=== PATIENT | female | born 1935 | race Two or more races ===

== ENCOUNTER 2017-06-19 13:21 | Inpatient (IN) | payer MEDICARE, OTHER ==
[~2017-06-19] VITALS: Ht 154.9 cm; Wt 64.0 kg
--- NOTE | 2017-06-19 15:05 | NUR ---
PT RECEIVED FROM YODER DIRECT ADMIT. WITH HELP OF SENIOR INTERACTIVE PRODUCER, TERRI MACIAS, SPEAKING TO THE PATIENT IN [facility], OBTAINED MEDICAL HISTORY AND ORIENTED PT TO ROOM AND CALL LIGHT. VITAL SIGNS TAKEN AND RECORDED. PATIENT DENIES PAIN. BED IN A LOW POSITION, CALL LIGHT WITHIN PATIENT REACH. WILL MONITOR.
--- NOTE | 2017-06-19 15:10 | NUR ---
DR JHA CALLED AND INFORMED PT IS ON THE FLOOR. MED RECON NURSE CALLED TO SUBMIT PT MEDS IN COMPUTER.
[2017-06-19 16:00] VITALS: BP 132/69
[2017-06-19] MEDS ORDERED: MEMA10TA PO (16:35)
[2017-06-19] MEDS ORDERED: PANT40TA4 PO (16:35)
[2017-06-19] MEDS ORDERED: SIMV20TA6 PO (16:35)
[2017-06-19] MEDS ORDERED: HYDR-4076 PO (16:35)
[2017-06-19] MEDS ORDERED: FAMO20TA8 PO (16:35)
[2017-06-19] MEDS ORDERED: IV NS 0.9% 1,000 ML IV PRN (17:51)
[2017-06-19] MEDS ORDERED: Z GUARD REMEDY 2 OZ OINT TP PRN (18:00)
[2017-06-19] MEDS ORDERED: HYDROCODONE/APAP 5/325MG 1 EACH TABLET PO PRN (18:00)
[2017-06-19] MEDS ORDERED: MAGNESIUM HYDROXIDE 30 ML UDC PO PRN (18:00)
[2017-06-19] MEDS ORDERED: ONDANSETRON HCL/PF 4 MG/2 ML VIAL IV PRN (18:00)
[2017-06-19] MEDS ORDERED: MAG HYDROX/AL HYDROX/SIMETH 30 ML UDC PO PRN (18:00)
[2017-06-19] MEDS ORDERED: ACETAMINOPHEN 325 MG TABLET PO PRN (18:00)
--- NOTE | 2017-06-19 18:52 | NUR ---
NO SIGNIFICANT CHANGES IN PATIENT CONDITION THROUGHOUT THE SHIFT. NO SOB OR DISTRESS NOTED AT THIS TIME. PATIENT DENIES PAIN. HEART RATE ST 103. BED IN A LOW POSITION, CALL LIGHT WITHIN PATIENT REACH. WILL ENDORSE FOR VANESSA.
[2017-06-19 19:12] LABS: CALCIUM, SERUM 8.7 mg/dL (8.5-10.1); CARBON DIOXIDE 25 mmol/L (21-32); CHLORIDE 93 mmol/L (98-107); CREATININE 0.8 mg/dL (0.6-1.3); GLUCOSE 258 mg/dL (74-106); POTASSIUM 3.3 mmol/L (3.5-5.1); SODIUM SERUM 127 mmol/L (136-145); UREA NITROGEN, BLOOD 10 mg/dL (7-18)
--- NOTE | 2017-06-19 19:15 | NUR ---
EDGE TRIMMER MECHANIC OPENING NOTES RECEIVED PT SITTING UPRIGHT IN BED WITH FAMILY AT BEDSIDE. PT IS AWAKE, ALERT AND RESPONSIVE. RESPIRATIONS ARE EVEN AND UNLABORED, NOT IN ANY ACUTE DISTRESS NOTED. DENIES ANY PAIN, SOB, N/V AT THIS TIME. IV SITE INTACT, NO INFILTRATION NOTED. DRESSING KEPT CLEAN AND DRY. SAFETY MEASURES ARE IN PLACE. INSTRUCTED PT TO USE CALL LIGHT WHEN ASSISTANCE IS NEEDED, CALL LIGHT IS LEFT WITHIN REACH. WILL MONITOR PT THROUGHOUT SHIFT.
[2017-06-19] MEDS: ENOXAPARIN SODIUM 40 MG/0.4 ML DISP.SYRIN SQ SCH (19:57)
[2017-06-19 20:00] VITALS: BP 121/71
[2017-06-19] MEDS ORDERED: AZITHROMYCIN 500 MG in IV D5W 250 ML IV SCH (20:00)
[2017-06-19 20:14] VITALS: BP_SYST 121; BP_SYST 125; BP_DIAS 71
[2017-06-19] MEDS: ALBUTEROL FS 2.5 MG/3 ML VIAL.NEB NEB SCH (20:14)
[2017-06-20] VITALS (10 sets, daily range): BP systolic 118–139; BP diastolic 64–82
--- NOTE | 2017-06-20 01:40 | NUR ---
RN NOTES RECEIVED PT. FROM ANOTHER NURSE NURSE NAVEED, PT IS A'OX3, [place] SPEAKING DENIES PAIN, NO OSB, CALL LIGHT WITHIN REACH, SIDERAILSUPX2, CONTINUE TO MONITOR
--- NOTE | 2017-06-20 01:49 | NUR ---
MS RN NOTES PT IS ALERT AND RESPONSIVE. NOT IN ANY APPARENT DISTRESS AT THIS TIME. IV SITE INTACT, NO INFILTRATIO NOTED. DRESSING KEPT CLEAN AND DRY. SAFETY MEASURES ARE IN PLACE. PT ASSIGNED TO COLLEEN SULLIVAN AND COLLEEN GHOTRA. REPORT GIVEN FOR CONTINUITY OF CARE.
[2017-06-20 06:16] LABS: BASOPHILS % (AUTO) 0.2 % (0.0-2.0); HEMATOCRIT 30 % (33-45); HEMOGLOBIN 10.3 g/dL (11.5-14.8); LYMPHOCYTES # (AUTO) 1.2 /CMM (0.8-4.8); LYMPHOCYTES % (AUTO) 15.4 % (20.0-44.0); MEAN CORPUSCULAR HGB CONC 34 g/dl (31.0-36.0); MEAN CORPUSCULAR VOLUME 86 fL (82-100); MONOCYTES # (AUTO) 0.4 /CMM (0.1-1.30); MONOCYTES % (AUTO) 4.9 % (2.0-12.0); NEUTROPHILS # (AUTO) 6.3 /CMM (1.8-8.9); NEUTROPHILS % (AUTO) 79.5 % (43.0-81.0); PLATELET COUNT (AUTO) 354 /CMM (150-450); RDW COEFFICIENT OF VARIATION 13.4 (11.5-15.0); RED BLOOD CELL COUNT(AUTO) 3.52 MIL/uL (4.0-5.2); WHITE BLOOD COUNT (AUTO) 7.9 K/uL (4.3-11.0)
[2017-06-20 06:30] LABS: CALCIUM, SERUM 8.3 mg/dL (8.5-10.1); CARBON DIOXIDE 24 mmol/L (21-32); CHLORIDE 98 mmol/L (98-107); CREATININE 0.5 mg/dL (0.6-1.3); GLUCOSE 163 mg/dL (74-106); MAGNESIUM 1.9 mg/dL (1.8-2.4); PHOSPHORUS 3.1 mg/dL (2.5-4.9); POTASSIUM 3.7 mmol/L (3.5-5.1); SODIUM SERUM 133 mmol/L (136-145); UREA NITROGEN, BLOOD 12 mg/dL (7-18)
--- NOTE | 2017-06-20 07:26 | NUR ---
MS RN CLOSING NOTE Patient was seen lying in bed AAOx4, breathing on 3L O2 NC with no SOB, and no signs of acute distress. Patient does have cough and occasional wheezing - pt is due for nebulizer treatment with RT. NS at 75 ml/hr is running through right AC 20g. All prescribed orders and patient needs have been met. Bed is in low/locked position, two side rails up, call mclain within reach. Will endorse patient care to day shift nurse.
--- NOTE | 2017-06-20 07:30 | NUR ---
MS/RN OPENING NOTE PATIENT ALERT AND ORIENTED X4. DENIES SOB. PATIENT ON 3L/MIN O2 VIA NC. RESPIRATION REGULAR AND UNLABORED. DENIES PAIN. RAC G 20 PATENT AND IV FLUIDS INFUSING WITH NO S/S INFILTRATION. BED LOW AND LOCKED. SIDE RAILS UP X2. CALL LIGHT WITHIN REACH. WILL CONTINUE TO MONITOR.
[2017-06-20] MEDS: ALBUTEROL FS 2.5 MG/3 ML VIAL.NEB NEB SCH ×4 (07:48→19:30)
[2017-06-20] MEDS: methylPREDNISolone SOD SUCC 125 MG/2ML VIAL IV SCH ×3 (08:30→16:12)
[2017-06-20] MEDS: SIMVASTATIN 20 MG TABLET PO SCH (08:30)
[2017-06-20] MEDS: hydrALAZINE HCL 25 MG TABLET PO SCH ×3 (08:30→16:12)
[2017-06-20] MEDS: MEMANTINE HCL 5 MG TABLET PO SCH (08:30)
[2017-06-20] MEDS: PANTOPRAZOLE 40 MG TABLET.DR PO SCH (08:30)
[2017-06-20] MEDS: FAMOTIDINE (20 MG) 20 MG TABLET PO SCH (08:30)
[2017-06-20] MEDS: DOCUSATE SODIUM 100 MG CAPSULE PO SCH ×2 (08:30→16:12)
--- NOTE | 2017-06-20 09:14 | NUR ---
MS/RN NOTE PATIENT IS SEEN BY DR JHA WITH NEW ORDER TO DISCONTINUE NS 0.9 % IV HYDRATION. THE ORDER READ BACK, VERIFIED. NOTED AND CARRIED OUT. THE PATIENT IS MADE AWARE.
--- NOTE | 2017-06-20 15:10 | NUR ---
MS/RN NOTE RP STATED THAT SHE WENT TO REMOVED THE BREATHING TREATMENT DUE TO IT WAS FINISHED AND NOTED HR 120. ASSESSED THE PATIENT AND NOTED HR 122, BP 131/74, R 20, TEMP 98.0, PL 0/10
--- NOTE | 2017-06-20 15:15 | NUR ---
MS/RN NOTE PATIENT MANUALLY CHECKED THE PATIENT HEART RATE AND NOTED PULSE THAT IS FAST ABOUT 130s AND IRREGULAR.
--- NOTE | 2017-06-20 15:16 | NUR ---
MS/RN NOTE PLACED THE PATIENT ON TELE MONITOR AND NOTED SR WITH EPISODES OF SVT. IS MADE AWARE.
--- NOTE | 2017-06-20 15:20 | NUR ---
MS/RN NOTE PER DR JHA STAT ECG ORDERED.
--- NOTE | 2017-06-20 15:25 | NUR ---
TELE/RN NOTE DR JHA IS MADE AWARE OF ECG RESULT.
--- NOTE | 2017-06-20 15:40 | NUR ---
TELE/RN NOTE WITH NEW ORDER OF CARDIZEM IV PUSH. PATIENT IS BEING ARRANGED TO GO TO [facility].
[2017-06-20] MEDS ORDERED: DILTIAZEM HCL 25 MG IV IV PRN (16:00)
--- NOTE | 2017-06-20 16:00 | NUR ---
TELE/RN NOTE PATIENT IN [facility] AND REPORT GIVEN TO THE RECEIVING NURSE.
--- NOTE | 2017-06-20 16:06 | NUR ---
MS/RN NOTE DR JHA IS MADE AWARE OF PATIENT HAVING EPISODES OF SVT WITH HR FLUCTUATING FROM 150 TO 194. NEW ORDER FOR CARDIZEM 10 MG IV Q6HR PRN FOR HR>110 WAS OBTAINED. THE ORDER READ BACK, VERIFIED. NOTED AND CARRIED OUT.
--- NOTE | 2017-06-20 16:10 | NUR ---
RN NOTE RECEIVED REPORT FROM [facility] MS 3RD FLOOR. RECEIVED PATIENT ALERT AND ORIENTED X4, SHE IS ABLE TO MAKE THINGS KNOWN AND VERBALIZE NEEDS IN HER OWN [place] IN[place] TRI[place] LANGUAGE (NEPALESE). BREATHING EVEN AND UNLABORED CURRENTLY ON 3L O2 VIA NC WELL TOLERATED. VITAL SIGN B/P 139/69, HR 150, RR 20, T 97.4, O2 95%, 0/10 PAIN. NO DISTRESS NOTED. PATIENT IS NOTED WITH ELEVATED HR, ORDERS TO GIVE CARDIZEM IV PUSH, CALLED PHARMACY BECAUSE THE [facility]MN[facility] DID NOT HAVE IT IN STOCK. THE PHARMACIST STATED THEY DO NOT HAVE CARDIZEM AVAILABLE AND TO RECOMMENDED VERAPAMIL INSTEAD. PAGE DR JHA TO MAKE HIM AWARE AND WHAT DOSAGE FOR THE MEDICATIONS. AWAITING FOR CALL BACK
--- NOTE | 2017-06-20 16:15 | NUR ---
RN NOTE DR JHA CALLED BACK SPOKE TO SOON CHARGE NURSE WITH NEW ORDERS FOR PATIENT TO START ON AMIODARONE DRIP PER PHARMACY DOSAGE.
[2017-06-20] MEDS ORDERED: AMIODARONE 150 MG in IV D5W 100 ML IV ONE (17:00)
[2017-06-20] MEDS ORDERED: AMIODARONE 900 MG in IV D5W 482 ML IV PRN (17:00)
--- NOTE | 2017-06-20 18:00 | NUR ---
RN NOTE PATIENT REMAINS STABLE ON AMIODARONE DRIP 1MG/MIN=33.3ML/HR. ON WIND TURBINE TECHNICIAN OF A-FIB HR OF 125-130, WILL CONTINUE TO MONITOR
--- NOTE | 2017-06-20 19:24 | NUR ---
TD RN NOTES RECEIVED PT ON BED. A/OX3. FAMILY ON BEDSIDE. ON NC 3LPM SATURATING WELL. ON TELE MONITOR MONITOR AFIB 129.ON AMIODARONE DRIP, 1MG/MIN 33.3ML/HR RUNNING WELL. IV ACCESS PATENT AND INTACT ON RIGHT WRIST AND RAC 20G. BED ALARM ON. HEAD OF BED ELEVATED. SIDE RAILS UP. CALL LIGHT WITHIN REACH. WILL CONTINUE TO MONITOR PT CLOSELY.
[2017-06-20] MEDS: ENOXAPARIN SODIUM 40 MG/0.4 ML DISP.SYRIN SQ SCH (20:22)
[2017-06-20] MEDS: AZITHROMYCIN 250 MG TABLET PO SCH (20:22)
[2017-06-20] MEDS: ONDANSETRON HCL/PF 4 MG/2 ML VIAL IVP PRN (20:33)
--- NOTE | 2017-06-20 23:30 | NUR ---
TD RN NOTES AMIODARONE DRIP TITRATRED TO .5MG/MIN. WILL CONTINUE TO MONITOR PT.
[2017-06-21] VITALS: BP 130/57
--- NOTE | 2017-06-21 03:23 | NUR ---
TD RN NOTES PT STILL ON AFIB 80S. WILL CONTINUE TO MONITOR
[2017-06-21 04:00] VITALS: BP 146/67
--- NOTE | 2017-06-21 06:48 | NUR ---
TD RN NOTES NO ACUTE CHANGES NOTED DURING THE SHIFT. PT STILL ON OCCASIONAL AFIB. AMIODARONE ON .5MG/ML. DUE MEDS GIVEN. HEAD OF BED ELEVATED. SIDE RAILS UP. CALL LIGHT IS PLACED WITHIN REACH. WILL ENDORSE TO THE AM NURSE FOR VANESSA.
--- NOTE | 2017-06-21 07:30 | NUR ---
RN NOTE RECEIVED PATIENT IN BED AWAKE, ALERT AND ORIENTED X3, SHE IS ABLE TO MAKE THINGS KNOWN IN HER [place] LANGUAGE. BREATHING EVEN UNLABORED WITH NO DISTRESS NOTED, CURRENTLY ON O2 VIA NC 3L SATURATING WELL. ON ACADEMIC ADVISER A-FIB 97. PATIENT CONTINUES ON AMIODARONE DRIP, 0.5MG/MIN 16.6ML/HR RUNNING WELL. IV ACCESS PATENT AND INTACT ON RIGHT WRIST. BED ALARM ON, BED LOCKED AND LOW POSITION. HEAD OF BED ELEVATED FOR COMFORT. PLACED CALL LIGHT WITHIN REACH. WILL CONTINUE TO MONITOR CLOSELY.
[2017-06-21] MEDS: PANTOPRAZOLE 40 MG TABLET.DR PO SCH (07:41)
[2017-06-21 08:00] VITALS: BP 143/76
[2017-06-21] MEDS: FAMOTIDINE (20 MG) 20 MG TABLET PO SCH (08:31)
[2017-06-21] MEDS: hydrALAZINE HCL 25 MG TABLET PO SCH ×3 (08:31→16:54)
[2017-06-21] MEDS: SIMVASTATIN 20 MG TABLET PO SCH (08:31)
[2017-06-21] MEDS: methylPREDNISolone SOD SUCC 125 MG/2ML VIAL IV SCH ×3 (08:32→16:54)
[2017-06-21] MEDS: DOCUSATE SODIUM 100 MG CAPSULE PO SCH ×2 (08:32→16:54)
[2017-06-21] MEDS: MEMANTINE HCL 5 MG TABLET PO SCH (08:32)
[2017-06-21] MEDS: ALBUTEROL FS 2.5 MG/3 ML VIAL.NEB NEB SCH (08:34)
[2017-06-21] MEDS: LEVALBUTEROL HCL NEB 1.25 MG/0.5 ML VIAL.NEB IH SCH ×3 (11:10→23:54)
[2017-06-21 11:26] LABS: TROPONIN I 0.311 ng/mL (0.00-0.056)
[2017-06-21 11:27] LABS: MAGNESIUM 2.1 mg/dL (1.8-2.4); PHOSPHORUS 2.5 mg/dL (2.5-4.9)
[2017-06-21 11:33] LABS: THYROID STIMULATING HORMONE 0.076 uIU/mL (0.358-3.74)
[2017-06-21 12:00] VITALS: BP 119/65
[2017-06-21 16:00] VITALS: BP 123/58
[2017-06-21] MEDS: AMIODARONE HCL 200 MG TABLET PO SCH (17:08)
--- NOTE | 2017-06-21 17:09 | NUR ---
RN NOTE AMIODARONE DRIP COMPLETED AND INFUSED. PATIENT WILL START ON AMIODARONE PO PER DR SHANE.
--- NOTE | 2017-06-21 19:11 | NUR ---
RN NOTE PATIENT REMAINED STABLE THROUGHOUT SHIFT. NO DISTRESS OR ACUTE CHANGES NOTED. WILL ENDORSE TO NEXT SHIFT TO CONTINUE CONTINUITY OF CARE.
[2017-06-21 20:00] VITALS: BP 111/59
[2017-06-21] MEDS: AZITHROMYCIN 250 MG TABLET PO SCH (21:43)
[2017-06-21] MEDS: ENOXAPARIN SODIUM 40 MG/0.4 ML DISP.SYRIN SQ SCH (21:48)
--- NOTE | 2017-06-21 22:00 | NUR ---
2159 PT PICKED UP, REPORT GIVEN TO [facility].
--- NOTE | 2017-06-21 22:47 | NUR ---
RN NOTE RN [facility] INITIAL NOTE RECEIVED PATIENT IN BED AWAKE, ALERT AND ORIENTED X3, SHE IS ABLE TO MAKE THINGS KNOWN IN HER [place] LANGUAGE. BREATHING EVEN UNLABORED WITH NO DISTRESS NOTED, CURRENTLY ON O2 VIA NC 3L SATURATING WELL. ON MOVIE MACHINE OPERATOR SR 80'S. IV ACCESS PATENT AND INTACT ON RIGHT WRIST. BED ALARM ON, BED LOCKED AND LOW POSITION. HEAD OF BED ELEVATED FOR COMFORT. PLACED CALL LIGHT WITHIN REACH. WILL CONTINUE TO MONITOR CLOSELY.
[2017-06-22] VITALS: BP 121/62
[2017-06-22 04:00] VITALS: BP 124/66
--- NOTE | 2017-06-22 06:09 | NUR ---
RN NOTE RN [facility] CLOSING NOTE ENDORSED PATIENT IN BED AWAKE, ALERT AND ORIENTED X3, SHE IS ABLE TO NEEDS KNOWN SAMI SPEAKING. BREATHING EVEN UNLABORED WITH NO DISTRESS NOTED, CURRENTLY ON O2 VIA NC 3L SATURATING WELL. ON SPLINE ROLLING MACHINE JOB SETTER SR 93'S. IV ACCESS PATENT AND INTACT ON RIGHT WRIST. BED ALARM ON, BED LOCKED AND LOW POSITION. HEAD OF BED ELEVATED FOR COMFORT. PLACED CALL LIGHT WITHIN REACH. WILL CONTINUE TO MONITOR CLOSELY.
[2017-06-22 06:29] LABS: BASOPHILS % (AUTO) 0.2 % (0.0-2.0); HEMATOCRIT 30 % (33-45); LYMPHOCYTES # (AUTO) 2.7 /CMM (0.8-4.8); MEAN CORPUSCULAR HGB CONC 34 g/dl (31.0-36.0); MEAN CORPUSCULAR VOLUME 87 fL (82-100); MONOCYTES # (AUTO) 1.1 /CMM (0.1-1.30); MONOCYTES % (AUTO) 6.9 % (2.0-12.0); NEUTROPHILS # (AUTO) 11.4 /CMM (1.8-8.9); NEUTROPHILS % (AUTO) 74.9 % (43.0-81.0); PLATELET COUNT (AUTO) 373 /CMM (150-450); RDW COEFFICIENT OF VARIATION 13.7 (11.5-15.0); RED BLOOD CELL COUNT(AUTO) 3.45 MIL/uL (4.0-5.2); WHITE BLOOD COUNT (AUTO) 15.2 K/uL (4.3-11.0)
[2017-06-22 07:04] LABS: TROPONIN I 0.211 ng/mL (0.00-0.056)
[2017-06-22 07:08] LABS: ALANINE AMINOTRANSFERASE 25 U/L (12-78); ALBUMIN 2.5 g/dL (3.4-5.0); ALKALINE PHOSPHATASE 29 U/L (46-116); ASPARTATE AMINOTRANSFERASE 14 U/L (15-37); BILIRUBIN,TOTAL 0.2 mg/dL (0.2-1.0); CALCIUM, SERUM 8.4 mg/dL (8.5-10.1); CARBON DIOXIDE 29 mmol/L (21-32); CHLORIDE 101 mmol/L (98-107); CREATININE 0.8 mg/dL (0.6-1.3); GLUCOSE 118 mg/dL (74-106); MAGNESIUM 2.2 mg/dL (1.8-2.4); PHOSPHORUS 2.1 mg/dL (2.5-4.9); POTASSIUM 3.7 mmol/L (3.5-5.1); SODIUM SERUM 134 mmol/L (136-145); TOTAL PROTEIN, SERUM 6.1 g/dL (6.4-8.2); UREA NITROGEN, BLOOD 23 mg/dL (7-18)
--- NOTE | 2017-06-22 07:30 | NUR ---
[facility] RN NOTE LESLY IN BED RESTING COMFORTABLY ON TELE MONITOR SR HR 85 AT THIS TIME , NO SOB NOTED ALERT ORIENTED X3 SR ,ON TELE MONITOR AT THIS TIME . BED IN LOWEST AND LOCKED POSITION C ALL LIGHT WITHIN REACH RT ARM HL WITH REDNESS NOTED, RT AC HL TENDER TO TOUCH , WILL CONT TO MONITOR CLOSELY ON 3L NC
[2017-06-22] MEDS: LEVALBUTEROL HCL NEB 1.25 MG/0.5 ML VIAL.NEB IH SCH ×3 (07:36→23:30)
[2017-06-22 08:00] VITALS: BP 152/78
[2017-06-22] MEDS: methylPREDNISolone SOD SUCC 125 MG/2ML VIAL IV SCH ×2 (08:04→20:48)
[2017-06-22] MEDS: FAMOTIDINE (20 MG) 20 MG TABLET PO SCH (08:04)
[2017-06-22] MEDS: hydrALAZINE HCL 25 MG TABLET PO SCH ×3 (08:04→16:16)
[2017-06-22] MEDS: DOCUSATE SODIUM 100 MG CAPSULE PO SCH ×2 (08:04→16:15)
[2017-06-22] MEDS: SIMVASTATIN 20 MG TABLET PO SCH (08:04)
[2017-06-22] MEDS: PANTOPRAZOLE 40 MG TABLET.DR PO SCH (08:05)
[2017-06-22] MEDS: AMIODARONE HCL 200 MG TABLET PO SCH (08:05)
[2017-06-22] MEDS: MEMANTINE HCL 5 MG TABLET PO SCH (08:05)
[2017-06-22] MEDS ORDERED: K PHOS NEUTRAL 250 MG TABLET PO ONE (11:30)
--- NOTE | 2017-06-22 11:54 | NUR ---
[facility] RN NOTE PT AT BESIDE ABLE TO AMBULATE WITH WALKER WELL. WILL CONT TO MONITOR CLOSELY
[2017-06-22 12:00] VITALS: BP_SYST 110; BP_SYST 152; BP_SYST 99; BP_DIAS 51; BP_DIAS 70; BP_DIAS 72
--- NOTE | 2017-06-22 13:29 | NUR ---
[facility] RN NOTE PATIENT C\O RECTUM PAIN ,UNABLE TO MAKE BM, MOM GIVEN AND TYLENOL FOR RECTAL PAIN GIVEN, WILL F\U
--- NOTE | 2017-06-22 14:48 | NUR ---
[facility] RN NOTE ON BREATHING TX BY RT ,FAMILY AT BEDSIDE
[2017-06-22] MEDS: ONDANSETRON HCL/PF 4 MG/2 ML VIAL IVP PRN (15:06)
--- NOTE | 2017-06-22 15:28 | NUR ---
[facility] RN NOTE C\O NAUSEA ZOFRAN 4 MG IVP GIVEN ORDERED ,WILL CONT TO MONITOR
[2017-06-22 16:00] VITALS: BP 129/71
--- NOTE | 2017-06-22 18:44 | NUR ---
MS RN NOTE FAMILY AT BEDSIDE, ALL NEEDS ATTENDED, NOT IN ACUTE DISTRESS, HAD DINNER ,ABLE TO FEED SELF CALL LGHT WITHIN REACH
--- NOTE | 2017-06-22 19:30 | NUR ---
MS RN OPENING NOTES RECEIVED PT RESTING IN BED COMFORTABLY. NO SOB NOTED. ALERT ORIENTED X 3. UPPER SORBIAN SPEAKING ONLY. NO C/O PAIN NOTED. NO OTHER ACUTE CHANGES NOTED @ THIS TIME. ON 3L O2 VIA NC. FAMILY @ BEDSIDE. BED IN LOWEST AND LOCKED POSITION. CALL LIGHT WITHIN REACH. IV ACCESS TO LEFT HAND, INTACT PATENT, HL. WILL CONT TO MONITOR CLOSELY FOR ANY VANESSA.
--- NOTE | 2017-06-22 19:35 | NUR ---
ADDENDUM PT HAS IV ACCESS TO RIGHT HAND # 24, NOT LEFT HAND, INTACT PATENT.
[2017-06-22 20:00] VITALS: BP 124/67
[2017-06-22] MEDS: AZITHROMYCIN 250 MG TABLET PO SCH (20:46)
[2017-06-22] MEDS: ENOXAPARIN SODIUM 40 MG/0.4 ML DISP.SYRIN SQ SCH (20:47)
[2017-06-23] VITALS: BP 143/64
--- NOTE | 2017-06-23 01:51 | NUR ---
MS RN NOTE PT SLEEPING COMFORTABLY @ THIS TIME. NO VANESSA NOTED. MONITORING CLOSELY.
[2017-06-23 04:00] VITALS: BP 135/75
--- NOTE | 2017-06-23 06:53 | NUR ---
MS RN CLOSING NOTES PT SLEPT WELL @ NIGHT. NO SOB NOTED. ALERT ORIENTED X 3. CITIZEN OF [place] SPEAKING ONLY. NO C/O PAIN NOTED. NO OTHER ACUTE CHANGES NOTED @ THIS TIME. ON 2L O2 VIA NC. ASSISTED WITH ADL CARE. ALL NEEDS ATTENDED TO & MET. BED IN LOWEST AND LOCKED POSITION. CALL LIGHT WITHIN REACH. IV ACCESS TO RIGHT HAND, INTACT PATENT, HL. WILL ENDORSE TO AM RN TO MONITOR FOR ANY VANESSA.
[2017-06-23] MEDS: LEVALBUTEROL HCL NEB 1.25 MG/0.5 ML VIAL.NEB IH SCH (07:47)
[2017-06-23 08:00] VITALS: BP 124/65
[2017-06-23] MEDS: DOCUSATE SODIUM 100 MG CAPSULE PO SCH (09:00)
[2017-06-23] MEDS ORDERED: METH5TAB6 PO (10:24)
[2017-06-23] MEDS ORDERED: PRED20TA PO (10:24)
[2017-06-23] MEDS ORDERED: ALBU18HF2 INH (10:24)
[2017-06-23] MEDS: MEMANTINE HCL 5 MG TABLET PO SCH (11:07)
[2017-06-23] MEDS: PANTOPRAZOLE 40 MG TABLET.DR PO SCH (11:07)
[2017-06-23] MEDS: FAMOTIDINE (20 MG) 20 MG TABLET PO SCH (11:07)
[2017-06-23 11:08] VITALS: BP 124/65
[2017-06-23] MEDS: hydrALAZINE HCL 25 MG TABLET PO SCH (11:08)
[2017-06-23] MEDS: SIMVASTATIN 20 MG TABLET PO SCH (11:09)
[2017-06-23] MEDS: methylPREDNISolone SOD SUCC 125 MG/2ML VIAL IV SCH (11:26)
== END 2017-06-23 12:40 | disposition home or self-care (01) | DRG 189 ==
LOC: TELE 14:36 → MED 06-20 00:59 → TELE-TD 06-20 15:50 → MEDSG1 06-22 11:40
PROVIDERS: ADMIT Internal Medicine; ATTEND Internal Medicine
DX: J96.01 Acute respiratory failure with hypoxia (principal); I21.A1 Myocardial infarction type 2; G93.40 Encephalopathy, unspecified; I48.91 Unspecified atrial fibrillation; J45.901 Unspecified asthma with (acute) exacerbation; I09.1 Rheumatic diseases of endocardium, valve unspecified; E86.0 Dehydration; D64.9 Anemia, unspecified; E05.00 Thyrotoxicosis with diffuse goiter without thyrotoxic crisis or storm; E78.5 Hyperlipidemia, unspecified; F03.90 Unspecified dementia, unspecified severity, without behavioral disturbance, psychotic disturbance, mood disturbance, and anxiety; I10 Essential (primary) hypertension; K21.9 Gastro-esophageal reflux disease without esophagitis; R11.0 Nausea; R73.9 Hyperglycemia, unspecified
CPT/HCPCS: 36415; 71045-TC; 80048-TC; 80053-TC; 80061-TC; 82306; 82728-TC; 83540-TC; 83735-TC; 84100-TC; 84439-TC; 84443-TC; 84484-TC; 85025-TC; 87081-TC; 93307-TC; 94799-TC; A6402; J0282; J0456; J1650; J2405; J2930; J3490; J7030; J7060; Z7610

== ENCOUNTER 2017-06-25 12:48 | Outpatient (CLI) | payer MEDICARE, OTHER ==
[~2017-06-25 12:48] MED LIST: ALBU18HF2 INH; FAMO20TA8 PO; HYDR-4076 PO; MEMA10TA PO; METH5TAB6 PO; PANT40TA4 PO; PRED20TA PO; SIMV20TA6 PO
[2017-06-25 12:54] VITALS: BP 115/79
== END 2017-06-25 23:59 | disposition home or self-care (01) ==
LOC: MSC 12:48
PROVIDERS: ATTEND Internal Medicine
DX: Z09 Encounter for follow-up examination after completed treatment for conditions other than malignant neoplasm (principal); J45.909 Unspecified asthma, uncomplicated; I10 Essential (primary) hypertension; E05.90 Thyrotoxicosis, unspecified without thyrotoxic crisis or storm; F03.90 Unspecified dementia, unspecified severity, without behavioral disturbance, psychotic disturbance, mood disturbance, and anxiety; E78.5 Hyperlipidemia, unspecified

== ENCOUNTER 2017-07-17 19:48 | Inpatient (IN) | payer MEDICARE, OTHER ==
[~2017-07-17] VITALS: Ht 152.4 cm; Wt 58.5 kg
--- NOTE | 2017-07-17 19:55 | NUR ---
TO BED 8 BIB PARAMEDICS C/O ABDOMINL PAIN WITH N/V X2 DAYS. PT AAOX4 NO ACUTE DISTRESS NOTED, RESP EVEN AN DUNLABORED. PLACE PT ON CARDIAC MONITORING, CONTINUOUS POX. ER MD AT BEDSIDE TO EVAL PT WITH ORDERES RECEIVED. WILL CARRY OUT ORDERS.
--- NOTE | 2017-07-17 20:00 | NUR ---
STARTED SL 18G TO RFA.
[2017-07-17] MEDS ORDERED: ONDANSETRON HCL/PF 4 MG/2 ML VIAL ONE (20:21)
[2017-07-17] MEDS ORDERED: HYDROMORPHONE INJ 0.5 MG/0.5 ML SYRINGE ONE (20:21)
--- NOTE | 2017-07-17 20:23 | NUR ---
PT FAMILY MEMBERS AT BEDSIDE.
[2017-07-17 20:25] LABS: PLATELET COUNT (AUTO) 449 /CMM (150-450)
[2017-07-17 20:30] LABS: APPEARANCE,URINE Clear (CLEAR); BILIRUBIN,URINE Negative (NEGATIVE); BLOOD, URINE Small Ery/uL (NEGATIVE); COLOR,URINE Yellow (YELLOW); KETONES,URINE Negative (NEGATIVE); LEUKOCYTE ESTERASE ,URINE Negative (NEGATIVE); NITRITE, URINE Negative (NEGATIVE); PROTEIN,URINE Negative (NEGATIVE); UGLUCOSE Negative (NEGATIVE); UROBILINOGEN,URINE 0.2 EU/dL (0.2)
[2017-07-17] MEDS ORDERED: HYDROMORPHONE INJ 2 MG/ML DISP.SYRIN IV ONE (20:30)
[2017-07-17] MEDS ORDERED: ONDANSETRON HCL/PF 4 MG/2 ML VIAL IVP ONE (20:30)
[2017-07-17] MEDS ORDERED: IV NS 0.9% 1,000 ML BAG IV ONE (20:30)
--- NOTE | 2017-07-17 20:30 | NUR ---
PT MEDICATED BY RN PER ER MD ORDER.
[2017-07-17 20:32] LABS: HEMATOCRIT 35 % (33-45); HEMOGLOBIN 12.1 g/dL (11.5-14.8); MEAN CORPUSCULAR HGB CONC 35 g/dl (31.0-36.0); MEAN CORPUSCULAR VOLUME 85 fL (82-100); RDW COEFFICIENT OF VARIATION 13.8 (11.5-15.0); RED BLOOD CELL COUNT(AUTO) 4.09 MIL/uL (4.0-5.2); WHITE BLOOD COUNT (AUTO) 8.1 K/uL (4.3-11.0)
[2017-07-17 20:35] LABS: CALCIUM, SERUM 9.1 mg/dL (8.5-10.1); CARBON DIOXIDE 24 mmol/L (21-32); CHLORIDE 87 mmol/L (98-107); CREATININE 0.6 mg/dL (0.6-1.3); GLUCOSE 114 mg/dL (74-106); POTASSIUM 3.2 mmol/L (3.5-5.1); SODIUM SERUM 121 mmol/L (136-145); UREA NITROGEN, BLOOD 8 mg/dL (7-18)
[2017-07-17 20:38] LABS: INR 0.94 (0.85-1.15)
[2017-07-17 20:43] LABS: TROPONIN I < 0.017 ng/mL (0.00-0.056)
[2017-07-17 20:46] LABS: ALANINE AMINOTRANSFERASE 16 U/L (12-78); ALBUMIN 3.5 g/dL (3.4-5.0); ALKALINE PHOSPHATASE 30 U/L (46-116); ASPARTATE AMINOTRANSFERASE 14 U/L (15-37); BILIRUBIN,DIRECT 0.1 mg/dL (0.0-0.2); BILIRUBIN,TOTAL 0.6 mg/dL (0.2-1.0); LIPASE 121 U/L (73-393); TOTAL PROTEIN, SERUM 7.3 g/dL (6.4-8.2)
[2017-07-17 21:05] LABS: BACTERIA,URINE Few /HPF (None Seen); MUCUS,URINE Rare /LPF (None Seen); SQUAMOUS EPITHELIAL CELL,UR Few /HPF (None Seen); URINE AMORPHOUS URATE Few /HPF (None Seen); WBC,URINE 2-4/HPH /HPF (0-3)
[2017-07-17 21:10] LABS: LYMPHOCYTES % (MANUAL) 34 % (16-48); MONOCYTES % (MANUAL) 8 % (0-11.0); NEUTROPHILS % (MANUAL) 58 (42-76)
[2017-07-17] MEDS ORDERED: FAMOTIDINE/PF INJ 20 MG/2 ML VIAL IV ONE ×2 (22:30→22:44)
--- NOTE | 2017-07-17 22:49 | NUR ---
TELE 327-2 FOR ABDOMINAL PAIN, ERIK NEVAREZ ADMITTING
--- NOTE | 2017-07-17 22:56 | NUR ---
REPORT CALLED TO [facility] UNDERWRITERCOLLEEN ROSADO. WILL TRANSPORT PT VIA ACLS PROTOCOL.
[2017-07-18] VITALS: BP 135/76
--- NOTE | 2017-07-18 00:10 | NUR ---
TELE/RN OPENING NOTES PT RECEIVED A/OX4. PALESTINIAN SPEAKING. ON 2L O2 VIA NC, BREATHING EVEN AND UNLABORED. DENIES SOB, NOTES SOME RUQ AND LUQ PAIN BUT TOLERABLE AT THIS TIME. PLACED ON BUYING INTERN, RHYTHM SHOWS SR WITH PVC'S AND PAC'S. IV TO RFA PATENT AND INTACT. ORIENTED PT TO ROOM AND CALL LIGHT. BED IN LOW/LOCKED POSITION WITH CALL LIGHT IN REACH. SIDE RAILS UPX2 WITH BED ALARM ON FOR SAFETY.
[2017-07-18 00:30] VITALS: BP 135/76
[2017-07-18] MEDS ORDERED: FAMOTIDINE (20 MG) 20 MG TABLET PO SCH (03:00)
[2017-07-18] MEDS ORDERED: ACETAMINOPHEN 325 MG TABLET PO PRN (03:00)
[2017-07-18] MEDS: IV NS 0.9% 1,000 ML IV PRN ×2 (03:54→19:55)
[2017-07-18 04:00] VITALS: BP 143/68
[2017-07-18] MEDS ORDERED: POTASSIUM CHLORIDE 20 MEQ TAB.PRT.SR PO ONE (04:00)
[2017-07-18] MEDS: hydrALAZINE HCL 25 MG TABLET PO SCH ×4 (05:11→23:52)
[2017-07-18 06:30] LABS: BASOPHILS # (AUTO) 0.1 /CMM (0.0-0.2); BASOPHILS % (AUTO) 0.7 % (0.0-2.0); EOSINOPHILS % (AUTO) 3.5 % (0.0-6.0); HEMATOCRIT 33 % (33-45); HEMOGLOBIN 11.2 g/dL (11.5-14.8); LYMPHOCYTES # (AUTO) 3.1 /CMM (0.8-4.8); LYMPHOCYTES % (AUTO) 38.7 % (20.0-44.0); MEAN CORPUSCULAR HGB CONC 34 g/dl (31.0-36.0); MEAN CORPUSCULAR VOLUME 86 fL (82-100); MONOCYTES # (AUTO) 0.8 /CMM (0.1-1.30); MONOCYTES % (AUTO) 10.1 % (2.0-12.0); NEUTROPHILS # (AUTO) 3.8 /CMM (1.8-8.9); PLATELET COUNT (AUTO) 413 /CMM (150-450); RDW COEFFICIENT OF VARIATION 14.5 (11.5-15.0); RED BLOOD CELL COUNT(AUTO) 3.82 MIL/uL (4.0-5.2)
[2017-07-18 06:41] LABS: ALANINE AMINOTRANSFERASE 17 U/L (12-78); ALKALINE PHOSPHATASE 27 U/L (46-116); ASPARTATE AMINOTRANSFERASE 7 U/L (15-37); BILIRUBIN,TOTAL 0.4 mg/dL (0.2-1.0); CALCIUM, SERUM 8.3 mg/dL (8.5-10.1); CARBON DIOXIDE 23 mmol/L (21-32); CHLORIDE 94 mmol/L (98-107); CREATININE 0.6 mg/dL (0.6-1.3); GLUCOSE 115 mg/dL (74-106); MAGNESIUM 1.7 mg/dL (1.8-2.4); POTASSIUM 3.9 mmol/L (3.5-5.1); SODIUM SERUM 127 mmol/L (136-145); TOTAL PROTEIN, SERUM 6.4 g/dL (6.4-8.2); UREA NITROGEN, BLOOD 6 mg/dL (7-18)
--- NOTE | 2017-07-18 07:04 | NUR ---
TELE/RN CLOSING NOTES PT ASLEEP, EASILY AROUSABLE. MICRONESIAN SPEAKING. A/OX4. ON 2L O2 VIA NC, BREATHING EVEN AND UNLABORED. DENIES SOB OR PAIN AT THIS TIME. ON TELE MONITOR SHOWING SR WITH PAC'S OCCASIONAL PVC'S, HR 81. IV TO RFA PATENT AND INTACT RUNNING IVF ORDERED. POTASSIUM REPLACED. BED IN LOW/LOCKED POSITION WITH CALL LIGHT IN REACH. SIDE RAILS UPX2. WILL ENDORSE TO DAY SHIFT RN VANESSA.
[2017-07-18 08:00] VITALS: BP 102/57
--- NOTE | 2017-07-18 08:10 | NUR ---
ms rn received on bed, awake,alert,oriented x4,hebrew speaking lady, not in any form of distress,respirations even and unlabored,no sob noted ,lungs are clear,abdomen soft,positive bowel sounds,denies pain at this time, will monitor patient's condition.
[2017-07-18] MEDS ORDERED: MAGNESIUM OXIDE 400 MG TABLET PO ONE (09:30)
--- NOTE | 2017-07-18 10:00 | NUR ---
ms smith breakfast served,due meds given,tolerated well.
[2017-07-18] MEDS: MEMANTINE HCL 5 MG TABLET PO SCH (10:11)
[2017-07-18] MEDS: METHIMAZOLE (5MG) 5 MG TABLET PO SCH (10:11)
[2017-07-18] MEDS: FAMOTIDINE (20 MG) 20 MG TABLET PO SCH ×2 (10:11→21:29)
[2017-07-18] MEDS: predniSONE 20 MG TABLET PO SCH (10:11)
[2017-07-18] MEDS: PANTOPRAZOLE 40 MG TABLET.DR PO SCH (10:13)
[2017-07-18] MEDS: ENOXAPARIN SODIUM 40 MG/0.4 ML DISP.SYRIN SQ SCH (10:17)
--- NOTE | 2017-07-18 10:38 | NUR ---
ms rn sleeping on bed, will endorse to other rn for rita.
[2017-07-18] MEDS ORDERED: diphenhydrAMINE HCL 25 MG CAPSULE PO PRN (11:30)
[2017-07-18 16:00] VITALS: BP 102/54
--- NOTE | 2017-07-18 18:00 | NUR ---
RN NOTES URINE SAMPLE COLLECTED, CALLED LAB FOR PICKED UP
[2017-07-18 18:52] LABS: URINE SODIUM, RANDOM 9 mmol/l (40-220)
--- NOTE | 2017-07-18 19:25 | NUR ---
RN CLOSING NOTES PATIENT IN STABLE CONDITION. ALL NEEDS ATTENDED AND PROVIDED. KEPT PATIENT SAFE AND COMFORTABLE. BED IN LOW/LOCKED POSITION, SIDERAILS UPX2, CALL LIGHT IN REACH. ENDORSED TO NIGHT RN FOR VANESSA.
--- NOTE | 2017-07-18 19:30 | NUR ---
MS/RN RECEIVE PATIENT AWAKE, ALERT, ORIENTED, COMFORTABLAE, NO C/O PAIN, NO DISTRESS NOTED, CALL LIGHT IN REACH. WILL MONITOR.
[2017-07-18 20:00] VITALS: BP 110/54
[2017-07-18] MEDS: SIMVASTATIN 20 MG TABLET PO SCH (21:29)
[2017-07-18 22:09] LABS: OSMOLALITY,URINE 253 mOS/kg (340-1090)
--- NOTE | 2017-07-19 | NUR ---
MS/RN PATIENT IS SLEEPING AT THIS TIME, AROUSABLE, APPEAR COMFORTABLE, NO SIGNS OF DISTRESS NOTED, CALL LIGHT IN REACH. WILL CONTINUE TO MONITOR.
[2017-07-19] MEDS: hydrALAZINE HCL 25 MG TABLET PO SCH ×3 (06:09→17:36)
--- NOTE | 2017-07-19 06:13 | NUR ---
MS/RN PATIENT IS AWAKE, ALERT, ORIENTED, COMFORTABLE, NO C/O PAIN, ALL NEEDS ATTENDED AT THIS TIME. WILL CONTINUE TO MONITOR.
[2017-07-19 07:10] LABS: BASOPHILS % (AUTO) 0.5 % (0.0-2.0); EOSINOPHILS % (AUTO) 1.5 % (0.0-6.0); HEMATOCRIT 31 % (33-45); HEMOGLOBIN 10.5 g/dL (11.5-14.8); LYMPHOCYTES # (AUTO) 2.5 /CMM (0.8-4.8); LYMPHOCYTES % (AUTO) 35.7 % (20.0-44.0); MEAN CORPUSCULAR HGB CONC 34 g/dl (31.0-36.0); MEAN CORPUSCULAR VOLUME 89 fL (82-100); MONOCYTES # (AUTO) 0.6 /CMM (0.1-1.30); MONOCYTES % (AUTO) 8.1 % (2.0-12.0); NEUTROPHILS # (AUTO) 3.9 /CMM (1.8-8.9); NEUTROPHILS % (AUTO) 54.2 % (43.0-81.0); PLATELET COUNT (AUTO) 366 /CMM (150-450); RDW COEFFICIENT OF VARIATION 14.6 (11.5-15.0); RED BLOOD CELL COUNT(AUTO) 3.46 MIL/uL (4.0-5.2); WHITE BLOOD COUNT (AUTO) 7.1 K/uL (4.3-11.0)
[2017-07-19 07:16] LABS: ALANINE AMINOTRANSFERASE 17 U/L (12-78); ALBUMIN 2.8 g/dL (3.4-5.0); ALKALINE PHOSPHATASE 26 U/L (46-116); ASPARTATE AMINOTRANSFERASE 15 U/L (15-37); BILIRUBIN,TOTAL 0.3 mg/dL (0.2-1.0); CALCIUM, SERUM 8.1 mg/dL (8.5-10.1); CARBON DIOXIDE 22 mmol/L (21-32); CHLORIDE 100 mmol/L (98-107); CREATININE 0.6 mg/dL (0.6-1.3); GLUCOSE 104 mg/dL (74-106); PHOSPHORUS 2.7 mg/dL (2.5-4.9); POTASSIUM 3.6 mmol/L (3.5-5.1); SODIUM SERUM 132 mmol/L (136-145); TOTAL PROTEIN, SERUM 6.1 g/dL (6.4-8.2); UREA NITROGEN, BLOOD 9 mg/dL (7-18)
--- NOTE | 2017-07-19 07:31 | NUR ---
RN OPENING NOTES RECEIVED PATIENT IN BED RESTING. NO ACUTE DISTRESS, NO SOB NOTED. DENIED PAIN ORD DISCOMFORT AT THE MOMENT. IV SITE INTACT AND PATENT. KEPT PATIENT SAFE AND COMFORTABLE. BED IN LOW/LOCKED POSITION, SIDERAILS UPX2, CALL LIGHT IN REACH. WILL CONTINUE TO MONITOR ACCORDINGLY
[2017-07-19 08:00] VITALS: BP 119/70
[2017-07-19] MEDS: predniSONE 20 MG TABLET PO SCH (08:29)
[2017-07-19] MEDS: FAMOTIDINE (20 MG) 20 MG TABLET PO SCH ×2 (08:29→21:44)
[2017-07-19] MEDS: PANTOPRAZOLE 40 MG TABLET.DR PO SCH (08:29)
[2017-07-19] MEDS: METHIMAZOLE (5MG) 5 MG TABLET PO SCH (08:29)
[2017-07-19] MEDS: MEMANTINE HCL 5 MG TABLET PO SCH (08:30)
[2017-07-19] MEDS: ENOXAPARIN SODIUM 40 MG/0.4 ML DISP.SYRIN SQ SCH (08:40)
[2017-07-19] MEDS: IV NS 0.9% 1,000 ML IV PRN ×2 (09:19→21:55)
[2017-07-19] MEDS: ONDANSETRON HCL/PF 4 MG/2 ML VIAL IVP PRN (09:20)
--- NOTE | 2017-07-19 09:30 | NUR ---
RN NOTES PATIENT COMPLAINED OF CHEST DISCOMFORT. DR JIMENEZ ON THE UNIT AND MADE AWARE. NEW ORDERS NOTED AND CARRIED OUT.
[2017-07-19 16:00] VITALS: BP 120/79
--- NOTE | 2017-07-19 19:30 | NUR ---
MS/RN RECEIVE PATIENT AWAKE, ALERT, ORIENTED, COMFORTABLE, NO C/O PAIN, NO DISTRESS NOTED, CALL LIGHT IN REACH. WILL MONITOR.
[2017-07-19 20:00] VITALS: BP 91/63
[2017-07-19] MEDS: SIMVASTATIN 20 MG TABLET PO SCH (21:45)
--- NOTE | 2017-07-19 23:39 | NUR ---
MS/RN IV OCCLUDED, REMOVED, INSERTED NEW IV ACCESS AT LEFT F/A G 22.
[2017-07-20] VITALS: BP 129/67
[2017-07-20] MEDS: hydrALAZINE HCL 25 MG TABLET PO SCH ×4 (00:12→17:29)
[2017-07-20] MEDS ORDERED: methylPREDNISolone SOD SUCC 125 MG/2ML VIAL IV ONE (02:30)
--- NOTE | 2017-07-20 02:46 | NUR ---
MS/RN PATIENT C/O SOB WITH MINIMAL LABORED BREATHING. PER PATIENT SHE HAS ASTHMA. CALLED AND SPOKE TO DR. ERIK NEVAREZ WITH ORDERS FOR SOLUMEDROL 125 IV X 1 NOW, THEN 60 MG IV TID, AND BREATHING TREATMENTS. ORDERS CARRIED OUT.
[2017-07-20] MEDS: ALBUTEROL FS 2.5 MG/0.5 ML VIAL.NEB NEB SCH ×6 (02:55→23:40)
[2017-07-20] MEDS: IPRATROPIUM NEB FS 0.5 MG/2.5 ML AMPUL.NEB NEB SCH ×6 (02:56→23:40)
--- NOTE | 2017-07-20 03:30 | NUR ---
MS/RN PATIENT SLEEPING AT THIS TIME, COMFORTABLE, NO SIGNS OF DISTRESS NOTED, CALL LIGHT IN REACH. WILL CONTINUE TO MONITOR.
[2017-07-20 04:00] VITALS: BP 127/77
[2017-07-20 06:08] LABS: BASOPHILS % (AUTO) 0.3 % (0.0-2.0); EOSINOPHILS % (AUTO) 0.4 % (0.0-6.0); HEMATOCRIT 32 % (33-45); HEMOGLOBIN 10.6 g/dL (11.5-14.8); LYMPHOCYTES # (AUTO) 1.1 /CMM (0.8-4.8); LYMPHOCYTES % (AUTO) 11.1 % (20.0-44.0); MEAN CORPUSCULAR HGB CONC 33 g/dl (31.0-36.0); MEAN CORPUSCULAR VOLUME 90 fL (82-100); MONOCYTES # (AUTO) 0.2 /CMM (0.1-1.30); MONOCYTES % (AUTO) 1.7 % (2.0-12.0); NEUTROPHILS # (AUTO) 8.9 /CMM (1.8-8.9); NEUTROPHILS % (AUTO) 86.5 % (43.0-81.0); PLATELET COUNT (AUTO) 369 /CMM (150-450); RDW COEFFICIENT OF VARIATION 15.5 (11.5-15.0); RED BLOOD CELL COUNT(AUTO) 3.51 MIL/uL (4.0-5.2); WHITE BLOOD COUNT (AUTO) 10.3 K/uL (4.3-11.0)
--- NOTE | 2017-07-20 06:53 | NUR ---
MS/RN PATIENT IS AWAKE, COMFORTABLE, NO SIGNS OF DISTRESS NOTED, ALL NEEDS ATTENDED AT THIS TIME. WILL CONTINUE TO MONITOR.
[2017-07-20 07:00] LABS: CALCIUM, SERUM 8.4 mg/dL (8.5-10.1); CARBON DIOXIDE 24 mmol/L (21-32); CHLORIDE 100 mmol/L (98-107); CREATININE 0.5 mg/dL (0.6-1.3); GLUCOSE 149 mg/dL (74-106); POTASSIUM 3.8 mmol/L (3.5-5.1); SODIUM SERUM 134 mmol/L (136-145); UREA NITROGEN, BLOOD 6 mg/dL (7-18)
--- NOTE | 2017-07-20 07:36 | NUR ---
REPORTS CHEST PAIN AND NASUEA. INFORMED DR SHANE. PLACED ON TELE MONITOR. EKG ORDERED.
--- NOTE | 2017-07-20 07:52 | NUR ---
EXTERNAL MONITOR READING ST 141 WITH PVS"S AND PACs. SHEET ROCK HANGER DR SHANE INFORMED. EKG ORDERED. RT AT THE BEDSIDE FOR EKG.
[2017-07-20 08:00] VITALS: BP 143/89
--- NOTE | 2017-07-20 08:08 | NUR ---
MS RN OPENING NOTE RECEIVED BEDSIDE SBAR REPORT ON THE PATIENT. PATIENT IS A/O X3, CITIZEN OF [place] AND [place] SPEAKING. PATIENT IS AWAKE AND RESPONSIVE IN BED. BED IS LOCKED IN LOWEST POSITION, SIDE RAILS UP X3, BED ALARM IS ON. CALL LIGHT WITHIN REACH.EDUCATED THE PATIENT TO CALL FOR ASSISTANCE USING THE CALL LIGHT, AND PATIENT VERBALIZED UNDERSTANDING WITH RETURN DEMONSTRATION. NO SOB. DENIES PAIN. REPORTS DISCOMFORT IN BOTH ARMS. WILL CONTINUE TO ASSESS/MONITOR THROUGHOUT THE SHIFT.
[2017-07-20] MEDS: MEMANTINE HCL 5 MG TABLET PO SCH (08:52)
[2017-07-20] MEDS: METHIMAZOLE (5MG) 5 MG TABLET PO SCH (08:53)
[2017-07-20] MEDS: PANTOPRAZOLE 40 MG TABLET.DR PO SCH (08:53)
[2017-07-20] MEDS: predniSONE 20 MG TABLET PO SCH (08:53)
[2017-07-20] MEDS: FAMOTIDINE (20 MG) 20 MG TABLET PO SCH ×2 (08:54→21:20)
[2017-07-20] MEDS: methylPREDNISolone SOD SUCC 125 MG/2ML VIAL IV SCH ×3 (08:54→17:17)
[2017-07-20] MEDS ORDERED: Magnesium 1GM/D5W 100ML PREMIX 100 ML IV SCH (09:00)
[2017-07-20] MEDS: ENOXAPARIN SODIUM 40 MG/0.4 ML DISP.SYRIN SQ SCH (09:05)
[2017-07-20] MEDS: ONDANSETRON HCL/PF 4 MG/2 ML VIAL IVP PRN (09:06)
--- NOTE | 2017-07-20 09:06 | NUR ---
patient complains of nausea. no emesis present. Zofran administered as ordered.
--- NOTE | 2017-07-20 09:20 | NUR ---
MAGNESIUM ORDERED BY DR SHANE. RN VERIFIED MAGNESIUM WNL. 2.0. DR. SHANE INFORMED. DR SHANE SAID NOT TO ADMINISTERED MAGNESIUM. WILL INFORM THE PHARMACY. NON-ADMINISTERING MAGNESIUM.
[2017-07-20] MEDS ORDERED: METOPROLOL TARTRATE 25 MG TABLET PO SCH ×2 (09:23→12:00)
--- NOTE | 2017-07-20 09:31 | NUR ---
RECEIVED VERBAL ORDER FROM DR. JIMENEZ TO PLACE PATIENT IN MILD SLIDING SCALED. READ BACH AND VERIFIED. WILL FOLLOW ORDER RECEIVED.
[2017-07-20] MEDS ORDERED: DEXTROSE 50%-WATER 50 ML DISP.SYRIN IV PRN (10:00)
[2017-07-20 12:00] VITALS: BP 123/65
[2017-07-20] MEDS: BLOOD SUGAR DIAGNOSTIC 1 EACH STRIP IN SCH ×3 (12:39→21:33)
[2017-07-20] MEDS: Z GUARD REMEDY 2 OZ OINT TP PRN ×2 (12:41→17:28)
[2017-07-20] MEDS: INSULIN REGULAR, HUMAN 100 UNIT/ML 3 ML VIAL SQ PRN ×3 (12:50→21:23)
[2017-07-20] MEDS: METOPROLOL TARTRATE 25 MG TABLET PO SCH ×2 (15:56→21:22)
[2017-07-20 16:00] VITALS: BP_SYST 125; BP_SYST 133; BP_DIAS 68
[2017-07-20] MEDS: IV NS 0.9% 1,000 ML IV PRN (17:13)
--- NOTE | 2017-07-20 18:57 | NUR ---
YOUTH PASTOR CLOSING NOTE PATIENT IS A/O X3, MALTESE SPEAKING. FAMILY AT THE BEDSIDE. PATIENT IS AWAKE AND RESPONSIVE IN BED, BED IS LOCKED IN LOWEST POSITION, SIDE RAILS UP X3, BED ALARM IS ON. CALL LIGHT WITHIN REACH.EDUCATED THE PATIENT/FAMILY TO CALL FOR ASSISTANCE USING THE CALL LIGHT, AND PATIENT VERBALIZED UNDERSTANDING WITH RETURN DEMONSTRATION. DENIES PAIN/DISCOMFORT AT THIS TIME. CHEST IS RISING EQUALLY BILATERALLY. SPO2 97% ON 2L . ALL NEEDS ARE MET. PATIENT REMINDED TO REPOSITION AND SHIFT WEIGHT THROUGHOUT THE SHIFT. MEDICATIONS ADMINISTERED ORDERED AND TOLERATED WELL. EXTERNAL MAINTENANCE SERVICES DISPATCHER READING SR 99 WITH PACs. WILL ENDORSE TO THE PUTTY WORKER NURSE FOR VANESSA.
--- NOTE | 2017-07-20 19:30 | NUR ---
MS/RN RECEIVE PATIENT AWAKE, ALERT, ORIENTED, COMFORTABLE, NO C/O PAIN AT THIS TIME. NO DISTRESS NOTED, CALL LIGHT IN REACH. WILL MONITOR.
[2017-07-20 20:00] VITALS: BP 117/65
[2017-07-20] MEDS: SIMVASTATIN 20 MG TABLET PO SCH (21:20)
[2017-07-21] VITALS: BP 104/50
[2017-07-21] MEDS: hydrALAZINE HCL 25 MG TABLET PO SCH ×5 (00:12→23:26)
[2017-07-21] MEDS: IPRATROPIUM NEB FS 0.5 MG/2.5 ML AMPUL.NEB NEB SCH ×6 (03:40→23:03)
[2017-07-21] MEDS: ALBUTEROL FS 2.5 MG/0.5 ML VIAL.NEB NEB SCH ×6 (03:40→23:03)
[2017-07-21] MEDS: METOPROLOL TARTRATE 25 MG TABLET PO SCH ×4 (04:00→21:39)
[2017-07-21 06:00] VITALS: BP 120/72
[2017-07-21] MEDS: INSULIN REGULAR, HUMAN 100 UNIT/ML 3 ML VIAL SQ PRN ×4 (06:26→21:38)
[2017-07-21] MEDS: BLOOD SUGAR DIAGNOSTIC 1 EACH STRIP IN SCH ×4 (06:29→21:39)
--- NOTE | 2017-07-21 07:00 | NUR ---
MS/RN PATIENT APPEARS SLEEPING, APPEAR COMFORTABLE, BREATHING EVEN AND UNLABORED, ALL NEEDS ATTENDED AT THIS TIME. WILL CONTINUE TO MONITOR
[2017-07-21 07:09] LABS: HEMATOCRIT 28 % (33-45); HEMOGLOBIN 9.3 g/dL (11.5-14.8); LYMPHOCYTES # (AUTO) 1.1 /CMM (0.8-4.8); LYMPHOCYTES % (AUTO) 11.4 % (20.0-44.0); MEAN CORPUSCULAR HGB CONC 34 g/dl (31.0-36.0); MEAN CORPUSCULAR VOLUME 89 fL (82-100); MONOCYTES # (AUTO) 0.5 /CMM (0.1-1.30); NEUTROPHILS # (AUTO) 7.9 /CMM (1.8-8.9); NEUTROPHILS % (AUTO) 83.6 % (43.0-81.0); PLATELET COUNT (AUTO) 325 /CMM (150-450); RDW COEFFICIENT OF VARIATION 15.5 (11.5-15.0); WHITE BLOOD COUNT (AUTO) 9.5 K/uL (4.3-11.0)
--- NOTE | 2017-07-21 07:15 | NUR ---
MS RN OPENING NOTE RECEIVED BEDSIDE SBAR REPORT ON THE PATIENT. PATIENT IS A/O X3, [place] SPEAKING. PATIENT IS AWAKE AND RESPONSIVE IN BED. BED IS LOCKED IN LOWEST POSITION, SIDE RAILS UP X3, BED ALARM IS ON. CALL LIGHT WITHIN REACH. EDUCATED THE PATIENT TO CALL FOR ASSISTANCE USING THE CALL LIGHT, AND PATIENT VERBALIZED UNDERSTANDING WITH RETURN DEMONSTRATION. NO SOB. DENIES CHEST PAIN/DISCOMFORT. YESTERDAY PATIENT WAS PLACED ON SMOOTH STUCCO RESURFACER FOR OBSERVATION PER DR. SHANE. PER GORE SEAMER NURSE RICKI, CHARGE NURSE EMILIANA DISCONTINUED TELEMETRY OBSERVATION LAST NIGHT. WILL FOLLOW UP WITH DR SHANE IF PATIENT SHOULD BE PLACED BACK ON THE MONITOR. PATIENT REPORTS FAMILY WILL BE VISITING SOON TO DISCUSS THE PLAN OF CARE WITH THE DOCTOR. WILL CONTINUE TO ASSESS/MONITOR THROUGHOUT THE SHIFT.
[2017-07-21 07:30] LABS: CALCIUM, SERUM 8.6 mg/dL (8.5-10.1); CARBON DIOXIDE 22 mmol/L (21-32); CHLORIDE 98 mmol/L (98-107); CREATININE 0.6 mg/dL (0.6-1.3); GLUCOSE 158 mg/dL (74-106); POTASSIUM 4.2 mmol/L (3.5-5.1); SODIUM SERUM 130 mmol/L (136-145); UREA NITROGEN, BLOOD 14 mg/dL (7-18)
--- NOTE | 2017-07-21 07:45 | NUR ---
DR SHANE STATED PATIENT IS OK TO BE OFF THE TELE MONITOR AND REMAIN IN MED-SURG STATUS
[2017-07-21 08:00] VITALS: BP 113/74
--- NOTE | 2017-07-21 08:42 | NUR ---
DR SHANE AT THE BEDSIDE.
[2017-07-21] MEDS ORDERED: predniSONE 20 MG TABLET PO SCH (09:00)
--- NOTE | 2017-07-21 09:06 | NUR ---
WILEY AT THE BEDSIDE DISCUSSING POC WITH THE PATIENT/FAMILY. RECEIVED A VERBAL ORDER FROM DR JIMENEZ TO NICKO/Rama ALMEIDA. READ BACK AND VERIFIED.
[2017-07-21] MEDS: methylPREDNISolone SOD SUCC 125 MG/2ML VIAL IV SCH ×3 (09:13→16:29)
[2017-07-21] MEDS: METHIMAZOLE (5MG) 5 MG TABLET PO SCH (09:13)
[2017-07-21] MEDS: PANTOPRAZOLE 40 MG TABLET.DR PO SCH (09:13)
[2017-07-21] MEDS: FAMOTIDINE (20 MG) 20 MG TABLET PO SCH ×2 (09:13→21:39)
[2017-07-21] MEDS: ENOXAPARIN SODIUM 30 MG/0.3 ML DISP.SYRIN SQ SCH (09:14)
[2017-07-21] MEDS: MEMANTINE HCL 5 MG TABLET PO SCH (09:20)
[2017-07-21 16:04] VITALS: BP 126/57
--- NOTE | 2017-07-21 17:15 | NUR ---
REPORTED TO DR JHA PATIENT'S IRRIGATION OUTPUT BEING CLEAR WITH NO EVIDENT BLOOD CLOTHS. NINTH BAG INFUSED. PER DR JHA STOP THE IRRIGATION. WILL FOLLOW ORDER RECEIVED. Addendum: 07/21/17 at 1849 by MARTHA MALDONADO RN CHARTED ON A WRONG PATIENT. DISREGARD.
[2017-07-21] MEDS: Z GUARD REMEDY 2 OZ OINT TP PRN (17:55)
--- NOTE | 2017-07-21 19:14 | NUR ---
MS RN CLOSING NOTE PATIENT IS A/O X3, [place] SPEAKING. PATIENT IS AWAKE AND RESPONSIVE IN BED. BED IS LOCKED IN LOWEST POSITION, SIDE RAILS UP X3, BED ALARM IS ON. CALL LIGHT WITHIN REACH. EDUCATED THE PATIENT TO CALL FOR ASSISTANCE USING THE CALL LIGHT, AND PATIENT VERBALIZED UNDERSTANDING WITH RETURN DEMONSTRATION. NO SOB. DENIES CHEST PAIN/DISCOMFORT. NO ACUTE CHANGES NOTED THROUGHOUT THE SHIFT. PATIENT IS CURRENTLY ON RA SATURATING 95%. ALL NEEDS ARE MET. WILL ENDORSE TO THE ACADEMIC PHYSICIAN NURSE FOR VANESSA.
--- NOTE | 2017-07-21 19:30 | NUR ---
RN NOTES RECEIVED PATIENT IN BED AWAKE. AO X 3, ABLE TO MAKE NEEDS KNOWN. NO ACUTE DISTRESS NOTED. DENIES ANY PAIN AT THIS TIME. IV SITE PATENT, INTACT; IVF INFUSING ORDERED. SAFETY REMINDERS GIVEN. FAMILY AT BEDSIDE FOR TRANSLATION. ON LOW BED WITH BILATERAL UPPER SIDE RAILS UP. CALL ISAAC WITHIN EASY REACH. WILL CONTINUE TO MONITOR.
[2017-07-21 20:00] VITALS: BP 124/74
[2017-07-21] MEDS: SIMVASTATIN 20 MG TABLET PO SCH (21:40)
[2017-07-21] MEDS: IV NS 0.9% 1,000 ML IV PRN (23:23)
[2017-07-22] MEDS: ALBUTEROL FS 2.5 MG/0.5 ML VIAL.NEB NEB SCH ×6 (02:38→23:10)
[2017-07-22] MEDS: IPRATROPIUM NEB FS 0.5 MG/2.5 ML AMPUL.NEB NEB SCH ×6 (02:38→23:10)
[2017-07-22] MEDS: METOPROLOL TARTRATE 25 MG TABLET PO SCH ×4 (03:19→21:14)
[2017-07-22] MEDS: hydrALAZINE HCL 25 MG TABLET PO SCH ×3 (06:19→18:00)
--- NOTE | 2017-07-22 06:34 | NUR ---
RN NOTES PATIENT ASLEEP, EASILY AROUSABLE. RESPIRATION EVEN. NO SIGNS OF PAIN NOTED. DUE MEDS GIVEN WITH NO ASE NOTED. NEEDS ATTENDED. KEPT CLEAN, DRY, AND COMFORTABLE. SAFETY PRECAUTIONS AND COMFORT MEASURES IN PLACE. WILL GIVE REPORT TO DAY SHIFT FOR CONTINUITY OF CARE.
[2017-07-22 06:38] LABS: CALCIUM, SERUM 8.5 mg/dL (8.5-10.1); CARBON DIOXIDE 26 mmol/L (21-32); CHLORIDE 97 mmol/L (98-107); CREATININE 0.8 mg/dL (0.6-1.3); GLUCOSE 177 mg/dL (74-106); SODIUM SERUM 132 mmol/L (136-145); UREA NITROGEN, BLOOD 21 mg/dL (7-18)
[2017-07-22 06:46] LABS: BASOPHILS % (AUTO) 0.2 % (0.0-2.0); EOSINOPHILS % (AUTO) 0.1 % (0.0-6.0); HEMATOCRIT 29 % (33-45); HEMOGLOBIN 9.6 g/dL (11.5-14.8); MEAN CORPUSCULAR HGB CONC 33 g/dl (31.0-36.0); MEAN CORPUSCULAR VOLUME 90 fL (82-100); MONOCYTES # (AUTO) 0.4 /CMM (0.1-1.30); MONOCYTES % (AUTO) 4.9 % (2.0-12.0); NEUTROPHILS # (AUTO) 6.5 /CMM (1.8-8.9); NEUTROPHILS % (AUTO) 82.8 % (43.0-81.0); PLATELET COUNT (AUTO) 342 /CMM (150-450); RDW COEFFICIENT OF VARIATION 15.2 (11.5-15.0); RED BLOOD CELL COUNT(AUTO) 3.24 MIL/uL (4.0-5.2); WHITE BLOOD COUNT (AUTO) 7.9 K/uL (4.3-11.0)
[2017-07-22] MEDS: BLOOD SUGAR DIAGNOSTIC 1 EACH STRIP IN SCH ×4 (06:49→21:19)
[2017-07-22] MEDS: INSULIN REGULAR, HUMAN 100 UNIT/ML 3 ML VIAL SQ PRN ×3 (06:51→21:22)
--- NOTE | 2017-07-22 07:10 | NUR ---
RN NOTES: PATIENT RESTING IN BED. NONLABORED BREATHING NOTED ON 2L NASAL CANNULA. IV SITE ON RIGHT FOREARM GAUGE 20 PATENT AND INTACT. DENYING PAIN AT THE MOMENT. BED IN LOWEST LOCKED POSITION. CALL LIGHT WITHIN REACH. FALL PRECAUTIONS IMPLEMENTED THROUGHOUT SHIFT.
[2017-07-22] MEDS: PANTOPRAZOLE 40 MG TABLET.DR PO SCH (08:14)
[2017-07-22 08:56] VITALS: BP 121/72
[2017-07-22] MEDS: FAMOTIDINE (20 MG) 20 MG TABLET PO SCH ×2 (09:15→21:14)
[2017-07-22] MEDS: MEMANTINE HCL 5 MG TABLET PO SCH (09:15)
[2017-07-22] MEDS: METHIMAZOLE (5MG) 5 MG TABLET PO SCH (09:15)
[2017-07-22] MEDS: methylPREDNISolone SOD SUCC 125 MG/2ML VIAL IV SCH ×3 (09:18→17:30)
[2017-07-22] MEDS: ENOXAPARIN SODIUM 30 MG/0.3 ML DISP.SYRIN SQ SCH (10:04)
[2017-07-22] MEDS: FUROSEMIDE 40 MG/4 ML VIAL IV SCH ×2 (10:09→14:47)
[2017-07-22 10:36] LABS: IRON, SERUM 43 ug/dl (50-175); TOTAL IRON BINDING CAPACITY 264 ug/dl (250-450)
[2017-07-22 10:50] LABS: FERRITIN 108 ng/mL (8-388)
--- NOTE | 2017-07-22 12:44 | NUR ---
BLOOD SUGAR NOTED TO BE 169, PATIENT REFUSING INSULIN STATING THAT SHE ALREADY ATE
[2017-07-22 14:46] VITALS: BP 140/78
--- NOTE | 2017-07-22 19:28 | NUR ---
RN NOTES: PATIENT RESTING IN BED. NONLABORED BREATHING NOTED ON 2L NASAL CANNULA. IV SITE ON RIGHT FOREARM GAUGE 20 PATENT AND INTACT. DENYING PAIN AT THE MOMENT. BED IN LOWEST LOCKED POSITION. CALL LIGHT WITHIN REACH. KEPT CLEAN AND DRY THROUGHOUT SHIFT, TURNED AND REPOSITIONED EVERY 2 HOURS. FALL PRECAUTIONS IMPLEMENTED THROUGHOUT SHIFT. ENDORSED TO NEXT SHIFT
--- NOTE | 2017-07-22 19:40 | NUR ---
MS RN OPENING NOTE Patient was seen sitting up in bed AAOx4, breathing on 2L O2 NC with no SOB, and no signs of acute distress. Patient was assisted to the bedside commode and moved steadily with minimal one-person assist. SL 22g IV is in the right FA. Bed is in the low/locked position, two side rails up, and call mclain within reach. Patient has no immediate needs/concerns at this time. Will continue to monitor.
[2017-07-22 20:00] VITALS: BP 121/67
[2017-07-22] MEDS: SIMVASTATIN 20 MG TABLET PO SCH (21:14)
[2017-07-23] VITALS (8 sets, daily range): BP systolic 104–147; BP diastolic 44–96
[2017-07-23] MEDS: IPRATROPIUM NEB FS 0.5 MG/2.5 ML AMPUL.NEB NEB SCH ×5 (02:33→19:53)
[2017-07-23] MEDS: ALBUTEROL FS 2.5 MG/0.5 ML VIAL.NEB NEB SCH ×5 (02:33→19:53)
--- NOTE | 2017-07-23 03:14 | NUR ---
MS COLLEEN NOTE - Phone call [facility] Received phone call from the Transfer Center at [facility] ([phone]) regarding possible transfer for the patient to have a cardiac valve repair (TAVR vs. open heart). There is still no bed availability at their facility, and they are awaiting financial clearance and an accepting doctor for the patient. They will follow up tomorrow.
[2017-07-23] MEDS: METOPROLOL TARTRATE 25 MG TABLET PO SCH ×4 (03:30→21:55)
[2017-07-23] MEDS: hydrALAZINE HCL 25 MG TABLET PO SCH ×4 (06:00→18:00)
--- NOTE | 2017-07-23 06:30 | NUR ---
MS RN NOTE - AccuCheck AccuCheck downtime; BG 190, documented on paper copy and given to Charge Nurse.
[2017-07-23] MEDS: BLOOD SUGAR DIAGNOSTIC 1 EACH STRIP IN SCH ×4 (06:41→21:55)
[2017-07-23] MEDS: INSULIN REGULAR, HUMAN 100 UNIT/ML 3 ML VIAL SQ PRN ×3 (06:47→22:00)
--- NOTE | 2017-07-23 07:05 | NUR ---
MS RN CLOSING NOTES Patient was seen sitting up in bed AAOx4, breathing on RA (Sat 98%) with no SOB, and no signs of acute distress. Patient remained stable overnight with no complaints; patient slept well. SL 22g IV is the right FA, intact and patent. Bed is in the low/locked position, two side rails up, and call mclain within reach. Patient care endorsed to day shift RN.
[2017-07-23 07:25] LABS: BASOPHILS % (AUTO) 0.2 % (0.0-2.0); HEMATOCRIT 32 % (33-45); HEMOGLOBIN 10.7 g/dL (11.5-14.8); LYMPHOCYTES # (AUTO) 1.3 /CMM (0.8-4.8); LYMPHOCYTES % (AUTO) 13.7 % (20.0-44.0); MEAN CORPUSCULAR HGB CONC 34 g/dl (31.0-36.0); MEAN CORPUSCULAR VOLUME 89 fL (82-100); MONOCYTES # (AUTO) 0.8 /CMM (0.1-1.30); NEUTROPHILS # (AUTO) 7.6 /CMM (1.8-8.9); NEUTROPHILS % (AUTO) 78.1 % (43.0-81.0); PLATELET COUNT (AUTO) 363 /CMM (150-450); RDW COEFFICIENT OF VARIATION 15.4 (11.5-15.0); RED BLOOD CELL COUNT(AUTO) 3.56 MIL/uL (4.0-5.2); WHITE BLOOD COUNT (AUTO) 9.7 K/uL (4.3-11.0)
[2017-07-23 07:34] LABS: CALCIUM, SERUM 8.3 mg/dL (8.5-10.1); CARBON DIOXIDE 33 mmol/L (21-32); CHLORIDE 94 mmol/L (98-107); CREATININE 0.7 mg/dL (0.6-1.3); GLUCOSE 169 mg/dL (74-106); POTASSIUM 3.2 mmol/L (3.5-5.1); SODIUM SERUM 134 mmol/L (136-145); UREA NITROGEN, BLOOD 22 mg/dL (7-18)
[2017-07-23] MEDS: PANTOPRAZOLE 40 MG TABLET.DR PO SCH (08:18)
[2017-07-23] MEDS ORDERED: BUMETANIDE INJ 8 MG in IV NS 0.9% 48 ML IV ONE (08:30)
[2017-07-23] MEDS: FAMOTIDINE (20 MG) 20 MG TABLET PO SCH ×2 (09:31→21:50)
[2017-07-23] MEDS: METHIMAZOLE (5MG) 5 MG TABLET PO SCH (09:31)
[2017-07-23] MEDS: MEMANTINE HCL 5 MG TABLET PO SCH (09:31)
[2017-07-23] MEDS: POTASSIUM CHLORIDE 20 MEQ TAB.PRT.SR PO SCH ×3 (09:32→13:48)
[2017-07-23] MEDS: methylPREDNISolone SOD SUCC 125 MG/2ML VIAL IV SCH ×3 (09:37→18:32)
[2017-07-23] MEDS: ENOXAPARIN SODIUM 30 MG/0.3 ML DISP.SYRIN SQ SCH (09:40)
--- NOTE | 2017-07-23 10:00 | NUR ---
RECEIVED BUMEX FROM PHARMACY NOW
--- NOTE | 2017-07-23 11:00 | NUR ---
BUMEX IV ORDERED BY DR SHANE STARTED NOW. UNABLE EARLIER DUE TO UNPATENT IV ACCESS. NEW IV ACCESS ESTABLISHED ON RIGHT FOREARM GAUGE 22. BP OF 133/70 WITH RADIAL HR OF 102. PATIENT REFUSING METOPROLOL AT THE MOMENT. BENEFITS AND RISKS EXPLAINED TO PATIENT
--- NOTE | 2017-07-23 12:30 | NUR ---
RN NOTES PATIENT REFUSING HYDRALAZINE. BENEFITS AND RISKS EXPLAINED PATIENT REFUSING INSULIN AT THE MOMENT, 151 BLOOD SUGAR, STATES SHE DOES NOT WANT TO EAT AT THE MOMENT
--- NOTE | 2017-07-23 13:50 | NUR ---
BUMEX DRIP HELD AT THE MOMENT TO ADMINISTER SOLUMEDROL
--- NOTE | 2017-07-23 14:30 | NUR ---
IV LINE INFILTRATED UNABLE TO START ANOTHER LINE AT THE MOMENT, MEDS HELD
--- NOTE | 2017-07-23 15:17 | NUR ---
NEW IV ON RIGHT FOREARM GAUGE 22 PATENT AND INTACT. ESTABLISHED
--- NOTE | 2017-07-23 19:20 | NUR ---
RN CLOSING NOTES: PATIENT RESTING IN BED. NONLABORED BREATHING NOTED ON 2 L NASAL CANNULA. NEW IV SITE ON RIGHT FOREARM PATENT AND INTACT GAUGE 22. PATIENT DENIED CHEST PAIN THROUGHOUT SHIFT. MONITORED FOR HYPOTENSION THROUGHOUT SHIFT. BENEFITS AND RISKS EXPLAINED ON ALL REFUSED MEDICATIONS BY TOWING PILOT. PATIENT KEPT CLEAN AND DRY THROUGHOUT SHIFT. TURNED AND REPOSITIONED EVERY 2 HOURS. KEPT CLEAN AND DRY. FALL AND ASPIRATION PRECAUTIONS IMPLEMENTED THROUGHOUT SHIFT. ENDORSED TO NEXT SHIFT
--- NOTE | 2017-07-23 19:30 | NUR ---
MS RN OPENING NOTE RECEIVED PATIENT IN BED, ALERT ORIENTED X4, ON 2L O2 VIA NC, TOLERATING WELL, IN NO APPARENT DISTRESS OR DISCOMFORT AT THIS TIME. RESPIRATIONS EVEN AND UNLABORED, DENIES PAIN AND SOB AT THIS TIME. PATIENT IS URDU SPEAKING ONLY, FAMILY AT BEDSIDE AT THIS TIME. PATIENT WITH RFA IVC, 22G, PATENT AND INTACT, WITH MEDICATION RUNNING AT THIS TIME. ABLE TO AMBULATE WITH ASSISTANCE, AND USE BEDSIDE COMMODE. ABLE TO VERBALIZE NEEDS, KEPT CLEAN AND COMFORTABLE. SAFETY MEASURES IN PLACE, BED IN LOW LOCKED POSITION, SIDE RAILS UP X2, CALL LIGHT WITHIN EASY REACH. WILL CONTINUE TO MONITOR.
[2017-07-23] MEDS: SIMVASTATIN 20 MG TABLET PO SCH (21:50)
[2017-07-24] VITALS: BP 107/66
[2017-07-24] MEDS: ALBUTEROL FS 2.5 MG/0.5 ML VIAL.NEB NEB SCH ×7 (00:01→22:53)
[2017-07-24] MEDS: IPRATROPIUM NEB FS 0.5 MG/2.5 ML AMPUL.NEB NEB SCH ×7 (00:01→22:53)
--- NOTE | 2017-07-24 00:19 | NUR ---
PATIENT APRESOLINE WAS HELD DUE TO BP BEING 107/66. WILL CONTINUE TO MONITOR.
[2017-07-24 04:20] VITALS: BP 119/65
[2017-07-24] MEDS: METOPROLOL TARTRATE 25 MG TABLET PO SCH ×4 (04:22→21:34)
[2017-07-24] MEDS: BLOOD SUGAR DIAGNOSTIC 1 EACH STRIP IN SCH ×4 (06:57→21:33)
[2017-07-24] MEDS: hydrALAZINE HCL 25 MG TABLET PO SCH ×4 (06:57→17:41)
[2017-07-24] MEDS: INSULIN REGULAR, HUMAN 100 UNIT/ML 3 ML VIAL SQ PRN ×4 (07:02→21:40)
--- NOTE | 2017-07-24 07:30 | NUR ---
RN OPENING NOTES PATIENT RECEIVED IN BED SLEEPING, EASILY AROUSABLE DURING CARE, RESPIRATIONS EVEN AND UNLABORED, DENIES ANY PAIN OR DISCOMFORT AT THIS TIME.PT ABLE TO MAKE NEEDS KNOWN, PASHTO SPEAKING. IV ACCESS PATENT AND INTACT NO REDNESS OR INFILTRATION NOTED. SAFETY MEASURES IN PLACE, KEPT CLEAN AND DRY, CALL LIGHT WITHIN EASY REACH WILL CONTINUE TO MONITOR
[2017-07-24 08:00] VITALS: BP_SYST 121; BP_SYST 124; BP_DIAS 73
--- NOTE | 2017-07-24 08:22 | NUR ---
MS RN CLOSING NOTE PATIENT IN BED, ALERT ORIENTED X4, ON 2L O2 VIA NC, TOLERATING WELL, IN NO APPARENT DISTRESS OR DISCOMFORT AT THIS TIME. RESPIRATIONS EVEN AND UNLABORED, DENIES PAIN AND SOB AT THIS TIME. PATIENT IS ETHIOPIAN SPEAKING ONLY. PATIENT WITH RFA IVC, 22G, SL, PATENT AND INTACT. ABLE TO AMBULATE WITH ASSISTANCE, AND USE BEDSIDE COMMODE. ABLE TO VERBALIZE NEEDS, KEPT CLEAN AND COMFORTABLE, ALL NEEDS ATTENDED. SAFETY MEASURES IN PLACE, BED IN LOW LOCKED POSITION, SIDE RAILS UP X2, CALL LIGHT WITHIN EASY REACH. WILL ENDORSE TO AM NURSE FOR VANESSA.
[2017-07-24] MEDS: PANTOPRAZOLE 40 MG TABLET.DR PO SCH (08:54)
[2017-07-24] MEDS: MEMANTINE HCL 5 MG TABLET PO SCH (08:54)
[2017-07-24] MEDS: FAMOTIDINE (20 MG) 20 MG TABLET PO SCH ×2 (08:54→21:33)
[2017-07-24] MEDS: METHIMAZOLE (5MG) 5 MG TABLET PO SCH (08:54)
[2017-07-24] MEDS: methylPREDNISolone SOD SUCC 125 MG/2ML VIAL IV SCH ×3 (08:55→16:45)
[2017-07-24] MEDS: ENOXAPARIN SODIUM 30 MG/0.3 ML DISP.SYRIN SQ SCH (08:58)
[2017-07-24] MEDS: FUROSEMIDE 40 MG TABLET PO SCH (09:49)
[2017-07-24] MEDS: POTASSIUM CHLORIDE 20 MEQ TAB.PRT.SR PO SCH (09:56)
[2017-07-24 10:05] LABS: EOSINOPHILS % (AUTO) 0.1 % (0.0-6.0); WHITE BLOOD COUNT (AUTO) 12.8 K/uL (4.3-11.0)
[2017-07-24 10:08] LABS: BASOPHILS % (AUTO) 0.3 % (0.0-2.0); HEMATOCRIT 40 % (33-45); HEMOGLOBIN 13.4 g/dL (11.5-14.8); LYMPHOCYTES % (AUTO) 15.6 % (20.0-44.0); MEAN CORPUSCULAR HGB CONC 34 g/dl (31.0-36.0); MEAN CORPUSCULAR VOLUME 90 fL (82-100); MONOCYTES # (AUTO) 1.1 /CMM (0.1-1.30); MONOCYTES % (AUTO) 8.8 % (2.0-12.0); NEUTROPHILS # (AUTO) 9.6 /CMM (1.8-8.9); NEUTROPHILS % (AUTO) 75.2 % (43.0-81.0); PLATELET COUNT (AUTO) 369 /CMM (150-450); RDW COEFFICIENT OF VARIATION 15.7 (11.5-15.0); RED BLOOD CELL COUNT(AUTO) 4.46 MIL/uL (4.0-5.2)
[2017-07-24 10:17] LABS: ALANINE AMINOTRANSFERASE 37 U/L (12-78); ALBUMIN 3.5 g/dL (3.4-5.0); ALKALINE PHOSPHATASE 34 U/L (46-116); ASPARTATE AMINOTRANSFERASE 20 U/L (15-37); BILIRUBIN,TOTAL 0.5 mg/dL (0.2-1.0); CALCIUM, SERUM 8.4 mg/dL (8.5-10.1); CARBON DIOXIDE 32 mmol/L (21-32); CHLORIDE 85 mmol/L (98-107); CREATININE 1.1 mg/dL (0.6-1.3); GLUCOSE 233 mg/dL (74-106); PHOSPHORUS 4.5 mg/dL (2.5-4.9); SODIUM SERUM 123 mmol/L (136-145); TOTAL PROTEIN, SERUM 7.2 g/dL (6.4-8.2); UREA NITROGEN, BLOOD 27 mg/dL (7-18)
[2017-07-24 10:22] LABS: POTASSIUM 2.7 mmol/L (3.5-5.1)
[2017-07-24] MEDS ORDERED: POTASSIUM CHLORIDE 20 MEQ TAB.PRT.SR PO ONE (13:00)
[2017-07-24] MEDS: POTASSIUM CL. PREMIX PERIPHER. 50 ML IV SCH ×2 (14:05→16:00)
[2017-07-24 16:00] VITALS: BP 120/63
[2017-07-24 19:06] LABS: CALCIUM, SERUM 8.5 mg/dL (8.5-10.1); CARBON DIOXIDE 31 mmol/L (21-32); CHLORIDE 92 mmol/L (98-107); CREATININE 1.4 mg/dL (0.6-1.3); GLUCOSE 250 mg/dL (74-106); POTASSIUM 3.8 mmol/L (3.5-5.1); SODIUM SERUM 133 mmol/L (136-145); UREA NITROGEN, BLOOD 30 mg/dL (7-18)
--- NOTE | 2017-07-24 19:30 | NUR ---
MS RN OPENING NOTE RECEIVED PATIENT IN BED, ALERT ORIENTED X4, ON 2L O2 VIA NC, TOLERATING WELL, IN NO APPARENT DISTRESS OR DISCOMFORT AT THIS TIME. RESPIRATIONS EVEN AND UNLABORED, DENIES PAIN AND SOB AT THIS TIME. PATIENT IS GEORGIAN SPEAKING ONLY, FAMILY AT BEDSIDE AT THIS TIME. PATIENT WITH RFA IVC, 22G, SL, PATENT AND INTACT. USES DIAPER BUT ALSO ABLE TO AMBULATE WITH ASSISTANCE, AND USE BEDSIDE COMMODE. ABLE TO VERBALIZE NEEDS, KEPT CLEAN AND COMFORTABLE. SAFETY MEASURES IN PLACE, BED IN LOW LOCKED POSITION, SIDE RAILS UP X2, CALL LIGHT WITHIN EASY REACH. WILL CONTINUE TO MONITOR.
--- NOTE | 2017-07-24 19:53 | NUR ---
RN CLOSING NOTES PATIENT IN BED, ALERT ORIENTED X4, ON RA, TOLERATING WELL, IN NO APPARENT DISTRESS OR DISCOMFORT AT THIS TIME. RESPIRATIONS EVEN AND UNLABORED, DENIES PAIN AND SOB AT THIS TIME. PATIENT IS SETS[place] SPEAKING ONLY, FAMILY AT BEDSIDE AT THIS TIME. PATIENT WITH RFA IVC, 22G, SL, PATENT AND INTACT. USES DIAPER BUT ALSO ABLE TO AMBULATE WITH ASSISTANCE, AND USE BEDSIDE COMMODE. ABLE TO VERBALIZE NEEDS, KEPT CLEAN AND COMFORTABLE. SAFETY MEASURES IN PLACE, BED IN LOW LOCKED POSITION, SIDE RAILS UP X2, CALL LIGHT WITHIN EASY REACH. PER MD REDRAW BMP AND RELAY RESULTS AND MD WILL DECIDE IF PT TO BE DISCHARGED ENDORSED TO NEXT SHIFT FOR CONTINUITY OF CARE
[2017-07-24 20:00] VITALS: BP 138/71
[2017-07-24] MEDS: SIMVASTATIN 20 MG TABLET PO SCH (21:33)
[2017-07-25] MEDS: hydrALAZINE HCL 25 MG TABLET PO SCH ×2 (00:50→07:00)
[2017-07-25] MEDS: ALBUTEROL FS 2.5 MG/0.5 ML VIAL.NEB NEB SCH ×3 (03:55→11:15)
[2017-07-25] MEDS: IPRATROPIUM NEB FS 0.5 MG/2.5 ML AMPUL.NEB NEB SCH ×3 (03:55→11:16)
[2017-07-25] MEDS: METOPROLOL TARTRATE 25 MG TABLET PO SCH ×2 (03:58→09:03)
--- NOTE | 2017-07-25 06:21 | NUR ---
MS RN CLOSING NOTE PATIENT IN BED, SLEEPING, EASILY AROUSED WITH VERBAL STIMULI, ORIENTED X4, ON ROOM AIR, TOLERATING WELL, IN NO APPARENT DISTRESS OR DISCOMFORT AT THIS TIME. RESPIRATIONS EVEN AND UNLABORED, DENIES PAIN AND SOB AT THIS TIME. PATIENT WITH RFA IVC, 22G, SL, PATENT AND INTACT. USES DIAPER BUT ALSO ABLE TO AMBULATE WITH ASSISTANCE AND USE BEDSIDE COMMODE. PATIENT IS KHMER SPEAKING ONLY. ABLE TO VERBALIZE NEEDS, KEPT CLEAN AND COMFORTABLE. SAFETY MEASURES IN PLACE, BED IN LOW LOCKED POSITION, SIDE RAILS UP X2, CALL LIGHT WITHIN EASY REACH. WILL ENDORSE TO AM NURSE FOR VANESSA.
[2017-07-25] MEDS: BLOOD SUGAR DIAGNOSTIC 1 EACH STRIP IN SCH (07:00)
[2017-07-25] MEDS: INSULIN REGULAR, HUMAN 100 UNIT/ML 3 ML VIAL SQ PRN (07:02)
--- NOTE | 2017-07-25 07:15 | NUR ---
MS/RN OPENING NOTE PATIENT ALERT AND ORIENTED X4. DENIES SOB. RESPIRATION REGULAR AND UNLABORED. DENIES PAIN. RIGHT FA G 22 PATENT AND SALINE LOCKED. BED LOW AND LOCKED. SIDE RAILS UP X3. CALL LIGHT WITHIN REACH. WILL CONTINUE TO MONITOR.
[2017-07-25 08:00] VITALS: BP 132/63
[2017-07-25] MEDS: FUROSEMIDE 40 MG TABLET PO SCH (08:59)
[2017-07-25] MEDS: METHIMAZOLE (5MG) 5 MG TABLET PO SCH (08:59)
[2017-07-25] MEDS: MEMANTINE HCL 5 MG TABLET PO SCH (08:59)
[2017-07-25] MEDS: POTASSIUM CHLORIDE 20 MEQ TAB.PRT.SR PO SCH (09:00)
[2017-07-25] MEDS: FAMOTIDINE (20 MG) 20 MG TABLET PO SCH (09:00)
[2017-07-25] MEDS: methylPREDNISolone SOD SUCC 125 MG/2ML VIAL IV SCH (09:00)
[2017-07-25 09:03] VITALS: BP 131/63
[2017-07-25] MEDS: PANTOPRAZOLE 40 MG TABLET.DR PO SCH (09:03)
[2017-07-25] MEDS: ENOXAPARIN SODIUM 30 MG/0.3 ML DISP.SYRIN SQ SCH (09:25)
--- NOTE | 2017-07-25 12:18 | NUR ---
MS/RN CLOSING NOTE PATIENT ALERT AND ORIENTED X4. DENIES SOB. DENIES PAIN. BREATHING EVEN AND UNLABORED. PATIENT IN NO APPARENT DISTRESS. DISCHARGE INSTRUCTIONS ARE GIVEN TO THE PATIENT AND SON. THEY VERBALIZED UNDERSTANDING. IV LINE REMOVED. PATIENT LEFT THE HOPISTAL WITH SON IN PRIVATE CARE. PATIENT LEFT IN STABLE CONDITION.
== END 2017-07-25 12:29 | disposition home or self-care (01) | DRG 641 ==
LOC: ER 20:01 → TELE 23:04 → MED 07-18 08:57
PROVIDERS: ADMIT Nurse Practitioner Acute Care; ATTEND Nurse Practitioner Acute Care
DX: E87.1 Hypo-osmolality and hyponatremia (principal); K57.92 Diverticulitis of intestine, part unspecified, without perforation or abscess without bleeding; E11.9 Type 2 diabetes mellitus without complications; I10 Essential (primary) hypertension; I25.10 Atherosclerotic heart disease of native coronary artery without angina pectoris; K21.9 Gastro-esophageal reflux disease without esophagitis; K59.00 Constipation, unspecified; J45.909 Unspecified asthma, uncomplicated; E05.90 Thyrotoxicosis, unspecified without thyrotoxic crisis or storm; E86.1 Hypovolemia; E83.42 Hypomagnesemia; I48.91 Unspecified atrial fibrillation; I70.0 Atherosclerosis of aorta; D64.9 Anemia, unspecified; I08.0 Rheumatic disorders of both mitral and aortic valves; I49.1 Atrial premature depolarization; E87.6 Hypokalemia; I27.20 Pulmonary hypertension, unspecified; E86.0 Dehydration; E03.9 Hypothyroidism, unspecified
CPT/HCPCS: 36415; 71045-TC; 80048-TC; 80053-TC; 80076-TC; 81000-TC; 82533; 82728-TC; 82962-TC; 83540-TC; 83605-TC; 83690-TC; 83735-TC; 83935-TC; 84100-TC; 84300-TC; 84439-TC; 84443-TC; 84484-TC; 84550-TC; 85025-TC; 85730-TC; 87040-TC; 87081-TC; 87086-TC; 93307-TC; 94799-TC; A4216; A4606; J1650; J1815; J1940; J2405; J2930; J3475; J3480; J3490; J7030; J7050; Q0163; Z7610

== ENCOUNTER 2018-04-17 21:17 | Emergency (ER) | payer MEDICARE, OTHER ==
[~2018-04-17] VITALS: Ht 149.9 cm; Wt 68.0 kg
--- NOTE | 2018-04-17 21:25 | NUR ---
PT BIBRA COMPLAINING OF ABD WITH N/V X 2 DAYS. PT HAVING NAUSEA UPON ARRIVAL. PT PUT ON THE MONITOR AND PULSE OX. PENDING EVAL FROM ER .
[2018-04-17] MEDS ORDERED: ONDANSETRON HCL/PF 4 MG/2 ML VIAL ONE ×2 (21:47→22:26)
[2018-04-17] MEDS ORDERED: MORPHINE SULFATE INJ 2 MG/ML DISP.SYRIN ONE (22:28)
[2018-04-17] MEDS ORDERED: MORPHINE SULFATE INJ 2 MG/ML DISP.SYRIN IV ONE (22:30)
[2018-04-17] MEDS ORDERED: ONDANSETRON HCL/PF 4 MG/2 ML VIAL IV ONE (22:30)
[2018-04-17] MEDS ORDERED: IV NS 0.9% 500 ML BAG IV ONE (22:30)
[2018-04-17] MEDS ORDERED: ONDANSETRON HCL/PF 4 MG/2 ML VIAL IVP ONE (22:30)
[2018-04-17 22:33] LABS: BASOPHILS # (AUTO) 0.1 /CMM (0.0-0.2); BASOPHILS % (AUTO) 1.2 % (0.0-2.0); EOSINOPHILS % (AUTO) 1.4 % (0.0-6.0); HEMATOCRIT 35 % (33-45); HEMOGLOBIN 11.7 g/dL (11.5-14.8); LYMPHOCYTES # (AUTO) 3.5 /CMM (0.8-4.8); LYMPHOCYTES % (AUTO) 38.9 % (20.0-44.0); MEAN CORPUSCULAR HGB CONC 33 g/dl (31.0-36.0); MEAN CORPUSCULAR VOLUME 88 fL (82-100); MONOCYTES # (AUTO) 0.6 /CMM (0.1-1.30); MONOCYTES % (AUTO) 6.4 % (2.0-12.0); NEUTROPHILS # (AUTO) 4.8 /CMM (1.8-8.9); NEUTROPHILS % (AUTO) 52.1 % (43.0-81.0); PLATELET COUNT (AUTO) 330 /CMM (150-450); RED BLOOD CELL COUNT(AUTO) 3.96 MIL/uL (4.0-5.2); WHITE BLOOD COUNT (AUTO) 9.1 K/uL (4.3-11.0)
--- NOTE | 2018-04-17 22:35 | NUR ---
PT HAVING REDNESS, AND L ARM FEELING ITCHY. ER MD NOTIFIED. VERBAL ORDER OF 25MG BENADRYL IVP. WILL CARRY OUT ORDERS.
[2018-04-17] MEDS ORDERED: diphenhydrAMINE HCL 50 MG/ML VIAL ONE (22:37)
[2018-04-17 22:45] LABS: ALANINE AMINOTRANSFERASE 12 U/L (12-78); ALBUMIN 3.4 g/dL (3.4-5.0); ALKALINE PHOSPHATASE 49 U/L (46-116); ASPARTATE AMINOTRANSFERASE 12 U/L (15-37); BILIRUBIN,DIRECT 0.1 mg/dL (0.0-0.2); BILIRUBIN,TOTAL 0.3 mg/dL (0.2-1.0); CARBON DIOXIDE 24 mmol/L (21-32); CHLORIDE 91 mmol/L (98-107); CREATININE 0.7 mg/dL (0.6-1.3); GLUCOSE 103 mg/dL (74-106); LIPASE 136 U/L (73-393); POTASSIUM 3.9 mmol/L (3.5-5.1); SODIUM SERUM 124 mmol/L (136-145); UREA NITROGEN, BLOOD 10 mg/dL (7-18)
--- NOTE | 2018-04-17 22:50 | NUR ---
PT TAKEN TO CT.
--- NOTE | 2018-04-17 23:20 | NUR ---
Patient is resting comfortably in bed with eyes closed. Easily aroused. NAD noted.
--- NOTE | 2018-04-17 23:55 | NUR ---
Urine sample obtained, sent to lab.
[2018-04-18 00:01] LABS: APPEARANCE,URINE Clear (CLEAR); BILIRUBIN,URINE Negative (NEGATIVE); BLOOD, URINE Negative Ery/uL (NEGATIVE); COLOR,URINE Yellow (YELLOW); KETONES,URINE Negative (NEGATIVE); LEUKOCYTE ESTERASE ,URINE Trace (NEGATIVE); NITRITE, URINE Negative (NEGATIVE); PROTEIN,URINE Negative (NEGATIVE); UGLUCOSE Negative (NEGATIVE); UROBILINOGEN,URINE 0.2 EU/dL (0.2)
[2018-04-18 00:32] LABS: BACTERIA,URINE Few /HPF (None Seen); RBC,URINE 0-2 /HPF (0-2)
[2018-04-18 00:33] LABS: SQUAMOUS EPITHELIAL CELL,UR Few /HPF (None Seen)
--- NOTE | 2018-04-18 00:47 | NUR ---
Patient discharged to home in stable condition. Written and verbal after care instructions given. Patient verbalizes understanding of instruction. IV removed. Catheter intact and site benign. Pressure and 4x4 applied to site. No bleeding noted.
[2018-04-18 01:14] VITALS: BP 126/75
== END 2018-04-18 01:15 | disposition home or self-care (01) ==
LOC: ER 21:17
DX: R10.84 Generalized abdominal pain (principal); R11.2 Nausea with vomiting, unspecified; I10 Essential (primary) hypertension; E11.9 Type 2 diabetes mellitus without complications; Z98.890 Other specified postprocedural states; Z88.6 Allergy status to analgesic agent
CPT/HCPCS: 36415; 71045-TC; 80048-TC; 80076-TC; 81000-TC; 83690-TC; 84484-TC; 85025-TC; 85730-TC; J1200; J2270; J2405; J7040

== ENCOUNTER 2018-05-19 15:36 | Inpatient (IN) | payer MEDICARE, OTHER ==
[~2018-05-19] VITALS: Ht 149.9 cm; Wt 54.0 kg
--- NOTE | 2018-05-19 15:36 | NUR ---
BIB FAMILY FROM APPOINTMENT W DR. SHANE, C/O N/V AND GENERALIZED BODY PAIN . TO ER BED 16, HOOKED TO MONITOR, CHANGED TO GOWN, AWAITING MD ABREU.
--- NOTE | 2018-05-19 15:50 | NUR ---
DR GARY AT BEDSIDE
[2018-05-19] MEDS ORDERED: IV NS 0.9% 1,000 ML BAG IV ONE (16:00)
[2018-05-19] MEDS ORDERED: FAMOTIDINE/PF INJ 20 MG/2 ML VIAL IV ONE ×2 (16:00→16:30)
[2018-05-19] MEDS ORDERED: MORPHINE SULFATE INJ 2 MG/ML DISP.SYRIN IV ONE (16:00)
[2018-05-19] MEDS ORDERED: ONDANSETRON HCL/PF 4 MG/2 ML VIAL IVP ONE (16:00)
[2018-05-19 16:17] LABS: BASOPHILS # (AUTO) 0.1 /CMM (0.0-0.2); BASOPHILS % (AUTO) 0.9 % (0.0-2.0); EOSINOPHILS % (AUTO) 1.6 % (0.0-6.0); HEMATOCRIT 36 % (33-45); HEMOGLOBIN 12.3 g/dL (11.5-14.8); LYMPHOCYTES # (AUTO) 3.3 /CMM (0.8-4.8); LYMPHOCYTES % (AUTO) 34.3 % (20.0-44.0); MEAN CORPUSCULAR HGB CONC 34 g/dl (31.0-36.0); MEAN CORPUSCULAR VOLUME 87 fL (82-100); MONOCYTES # (AUTO) 0.6 /CMM (0.1-1.30); MONOCYTES % (AUTO) 6.2 % (2.0-12.0); NEUTROPHILS # (AUTO) 5.4 /CMM (1.8-8.9); PLATELET COUNT (AUTO) 248 /CMM (150-450); WHITE BLOOD COUNT (AUTO) 9.5 K/uL (4.3-11.0)
[2018-05-19 16:24] LABS: CALCIUM, SERUM 8.4 mg/dL (8.5-10.1); CARBON DIOXIDE 22 mmol/L (21-32); CHLORIDE 98 mmol/L (98-107); GLUCOSE 112 mg/dL (74-106); SODIUM SERUM 129 mmol/L (136-145); UREA NITROGEN, BLOOD 16 mg/dL (7-18)
[2018-05-19] MEDS ORDERED: ONDANSETRON HCL/PF 4 MG/2 ML VIAL ONE (16:30)
[2018-05-19] MEDS ORDERED: MORPHINE SULFATE INJ 2 MG/ML DISP.SYRIN ONE (16:30)
--- NOTE | 2018-05-19 16:30 | NUR ---
US TECH AT BEDSIDE
[2018-05-19 16:31] LABS: ALANINE AMINOTRANSFERASE 17 U/L (12-78); ALBUMIN 3.5 g/dL (3.4-5.0); ALKALINE PHOSPHATASE 46 U/L (46-116); ASPARTATE AMINOTRANSFERASE 13 U/L (15-37); BILIRUBIN,DIRECT 0.1 mg/dL (0.0-0.2); BILIRUBIN,TOTAL 0.3 mg/dL (0.2-1.0); LIPASE 148 U/L (73-393)
[2018-05-19] MEDS ORDERED: IOHEXOL-300 100 ML VIAL IV ONE ×2 (17:02→17:08)
[2018-05-19] MEDS ORDERED: IV NS 0.9% 250 ML IV ONE (17:02)
[2018-05-19] MEDS ORDERED: CT SWABBABLE VALVE TRANS SET 1 EA INFUS.SET MC ONE (17:02)
--- NOTE | 2018-05-19 17:10 | NUR ---
PT WHEELED OUT VIA Prevently FOR CT SCAN
[2018-05-19] MEDS ORDERED: IV D5/0.45 NACL 1,000 ML IV PRN (18:29)
[2018-05-19] MEDS ORDERED: ACETAMINOPHEN 325 MG TABLET PO PRN (18:30)
[2018-05-19] MEDS ORDERED: Z GUARD REMEDY 2 OZ OINT TP PRN (18:30)
[2018-05-19] MEDS ORDERED: MAG HYDROX/AL HYDROX/SIMETH 30 ML UDC PO PRN (18:30)
[2018-05-19] MEDS ORDERED: METOCLOPRAMIDE HCL 15 MG in IV NS 0.9% 50 ML IV PRN (18:30)
[2018-05-19] MEDS ORDERED: ONDANSETRON HCL/PF 4 MG/2 ML VIAL IVP PRN (18:30)
[2018-05-19] MEDS ORDERED: MAGNESIUM HYDROXIDE 30 ML UDC PO PRN (18:30)
--- NOTE | 2018-05-19 19:05 | NUR ---
GOT BED 304-2
--- NOTE | 2018-05-19 19:57 | NUR ---
REPORT GIVEN TO MS SANTIAGO OF TELE UNIT
[2018-05-19 20:00] VITALS: BP 123/73
--- NOTE | 2018-05-19 20:20 | NUR ---
TELE/RN NOTES RECEIVED PT. FROM ER VIA CECI. PT. IS AWAKE, ALERT AND ORIENTED X3. PT. IS CHINESE SPEAKING. BREATHING EVEN AND UNLABORED ON ROOM AIR. NO SOB, RESPIRATORY DISTRESS OR COMPLAINTS OF PAIN NOTED AT THIS TIME. NO NAUSEA OR VOMITING NOTED AT THIS TIME. ORIENTED PT. TO ROOM. PLACED EXTERNAL MEDICAL DELIVERY DRIVER ON PT. CURRENT RHYTHM = SINUS RHYTHM WITH PAC'S HR 72. PT. WITH LEFT FOREARM 22 GAUGE IV SALINE LOCK PRESENT, PATENT AND INTACT. PT. WITH RIGHT AC 20 GAUGE IV SALINE LOCK PRESENT, PATENT AND INTACT. PT. WITH FAMILY MEMBERS PRESENT AT BEDSIDE. BED LOCKED AND IN LOWEST POSITION, SIDE RAILS UP X2, CALL LIGHT WITHIN REACH, WILL CONTINUE TO MONITOR.
[2018-05-19] MEDS ORDERED: IV D5/ 0.9% NACL 1,000 ML IV ONE (20:30)
--- NOTE | 2018-05-19 20:52 | NUR ---
TELE/RN NOTES RECEIVED PHONE CALL FROM [facility]LIN IN RADIOLOGY PER FRANKLIN KEEP PT. NPO AND MRCP WITHOUT CONTRAST WILL BE DONE TOMORROW AND NOT TONIGHT. WILL KEEP PT. NPO ORDERED. WILL CONTINUE TO MONITOR.
[2018-05-20] VITALS: BP 118/70
[2018-05-20] MEDS ORDERED: MORPHINE SULFATE INJ 2 MG/ML DISP.SYRIN IV PRN (01:00)
[2018-05-20 04:00] VITALS: BP 114/62
[2018-05-20 06:12] LABS: BASOPHILS # (AUTO) 0.1 /CMM (0.0-0.2); BASOPHILS % (AUTO) 1.1 % (0.0-2.0); EOSINOPHILS % (AUTO) 2.9 % (0.0-6.0); HEMATOCRIT 38 % (33-45); HEMOGLOBIN 12.7 g/dL (11.5-14.8); LYMPHOCYTES # (AUTO) 3.3 /CMM (0.8-4.8); LYMPHOCYTES % (AUTO) 44.3 % (20.0-44.0); MEAN CORPUSCULAR HGB CONC 34 g/dl (31.0-36.0); MEAN CORPUSCULAR VOLUME 87 fL (82-100); MONOCYTES # (AUTO) 0.5 /CMM (0.1-1.30); NEUTROPHILS # (AUTO) 3.4 /CMM (1.8-8.9); NEUTROPHILS % (AUTO) 44.7 % (43.0-81.0); PLATELET COUNT (AUTO) 211 /CMM (150-450); RED BLOOD CELL COUNT(AUTO) 4.37 MIL/uL (4.0-5.2); WHITE BLOOD COUNT (AUTO) 7.5 K/uL (4.3-11.0)
[2018-05-20 06:39] LABS: CALCIUM, SERUM 8.1 mg/dL (8.5-10.1); CARBON DIOXIDE 21 mmol/L (21-32); CHLORIDE 104 mmol/L (98-107); CREATININE 0.6 mg/dL (0.6-1.3); GLUCOSE 108 mg/dL (74-106); MAGNESIUM 2.1 mg/dL (1.8-2.4); PHOSPHORUS 3.4 mg/dL (2.5-4.9); POTASSIUM 3.6 mmol/L (3.5-5.1); SODIUM SERUM 138 mmol/L (136-145); UREA NITROGEN, BLOOD 11 mg/dL (7-18)
--- NOTE | 2018-05-20 07:10 | NUR ---
TELE/RN NOTES PT. IS LYING IN BED, AWAKE, ALERT AND ORIENTED X3. BREATHING EVEN AND UNLABORED ON ROOM AIR. NO SOB, RESPIRATORY DISTRESS OR COMPLAINTS OF PAIN NOTED AT THIS TIME. NO NAUSEA OR VOMITING NOTED AT THIS TIME. PT. WITH EXTERNAL SUPERVISOR TRANSCRIBING OPERATORS ON PT. CURRENT RHYTHM = SINUS RHYTHM HR 71. PT. WITH LEFT FOREARM 22 GAUGE IV SALINE LOCK PRESENT, PATENT AND INTACT. PT. WITH RIGHT AC 20 GAUGE PERIPHERAL IV PRESENT, PATENT AND INTACT ADMINISTERING TO PT. D5NS @ 75 ML/HR. PT. REMAINS NPO SINCE MIDNIGHT PENDING MRCP WITHOUT CONTRAST TODAY. ALL PT. NEEDS MET. BED LOCKED AND IN LOWEST POSITION, SIDE RAILS UP X2, CALL LIGHT WITHIN REACH, WILL ENDORSE TO DAYSHIFT NURSE FOR CONTINUITY OF CARE.
--- NOTE | 2018-05-20 07:30 | NUR ---
TELE/RN OPENING NOTE PATIENT IN BED IN STABLE CONDITION. A/O X 3, MALTESE SPEAKING. NO SIGNS OF ACUTE DISTRESS. NO COMPLAIN OF PAIN OR DISCOMFORT. ON TELE MONITOR NOTED WITH SR WITH PVC IN 6O'S. NPO STATUS AT THIS TIME SECONDARY TO SCHEDULED MRCP TODAY. ALL NEEDS ATTENDED TO. CALL LIGHT WITHIN REACH. WILL CONTINUE TO MONITOR TO ENSURE SAFETY.
[2018-05-20 07:36] LABS: ALBUMIN 3.2 g/dL (3.4-5.0); BILIRUBIN,TOTAL 0.3 mg/dL (0.2-1.0)
[2018-05-20 07:37] LABS: TOTAL PROTEIN, SERUM 6.5 g/dL (6.4-8.2)
[2018-05-20 08:00] VITALS: BP 130/72
[2018-05-20] MEDS: PANTOPRAZOLE 40 MG VIAL IV SCH (08:18)
[2018-05-20] MEDS: predniSONE 20 MG TABLET PO SCH (09:00)
[2018-05-20] MEDS ORDERED: PANTOPRAZOLE 40 MG TABLET.DR PO SCH (09:00)
--- NOTE | 2018-05-20 09:37 | NUR ---
TELE/RN PROTONIX 40MG TAB PO NON ADMIN SECONDARY TO PATIENT NPO AND ALSO PATIENT GIVEN IV PROTONIX 40MG VIA IV.
[2018-05-20] MEDS: METHIMAZOLE (5MG) 5 MG TABLET PO SCH (10:00)
--- NOTE | 2018-05-20 14:35 | NUR ---
MS/RN RELAYED MRCP RESULTS TO DNP GABRIELE WITH ORDERS TO START CLEAR LIQUIDS DIET AND ADVANCE TOLERATED.
[2018-05-20] MEDS ORDERED: SIMETHICONE 80 MG TAB.CHEW PO PRN (17:00)
--- NOTE | 2018-05-20 17:07 | NUR ---
MS/RN SEEN BY EDD KEENE WITH ORDERS TO DC CLEAR LIQUID AND ADVANCE DIET TO SOFT DIET.
[2018-05-20] MEDS: HYDROCODONE/APAP 5/325MG 1 EACH TABLET PO PRN (17:27)
--- NOTE | 2018-05-20 18:30 | NUR ---
MS/RN CLOSING NOTE PATIENT IN BED IN STABLE CONDITION. A/O X 3, BURUNDIAN SPEAKING. NO SIGNS OF ACUTE DISTRESS. NO COMPLAIN OF PAIN OR DISCOMFORT. SCHEDULE FOR NM HIDA SCAN TOMORROW. CONSENT OBTAINED. NPO EXCEPT MEDS POST MIDNIGHT ON 05/21/18. HOLD MORPHINE SECONDARY TO HIDA SCAN SCHEDULE FOR TOMORROW. ALL NEEDS ATTENDED TO. CALL LIGHT WITHIN REACH. WILL ENDORSE TO NEXT SHIFT FOR CONTINUITY OF CARE.
--- NOTE | 2018-05-20 19:15 | NUR ---
MS/RN NOTES RECEIVED PT. LYING IN BED RESTING. PT. IS EASILY AROUSABLE TO NAME. BREATHING EVEN AND UNLABORED ON ROOM AIR. NO SOB, RESPIRATORY DISTRESS OR COMPLAINTS OF PAIN NOTED AT THIS TIME. PT. WITH LEFT FOREARM 22 GAUGE IV SALINE LOCK PRESENT, PATENT AND INTACT. PT. WITH RIGHT AC 20 GAUGE IV SALINE LOCK PRESENT, PATENT AND INTACT. PER DAYSHIFT NURSE PT. WILL BE NPO EXCEPT MEDS AFTER MIDNIGHT PENDING HIDA SCAN TOMORROW. CONSENT IS SIGNED AND PLACED IN PT. CHART. BED LOCKED AND IN LOWEST POSITION, SIDE RAILS UP X2, CALL LIGHT WITHIN REACH, WILL CONTINUE TO MONITOR.
[2018-05-20 20:00] VITALS: BP 131/73
[2018-05-20] MEDS: SIMVASTATIN 20 MG TABLET PO SCH (21:52)
[2018-05-21] MEDS: HYDROCODONE/APAP 5/325MG 1 EACH TABLET PO PRN ×3 (04:35→21:41)
--- NOTE | 2018-05-21 06:26 | NUR ---
MS/RN NOTES PT. IS LYING IN BED RESTING. BREATHING EVEN AND UNLABORED ON ROOM AIR. NO SOB, RESPIRATORY DISTRESS OR COMPLAINTS OF PAIN NOTED AT THIS TIME. PT. WITH RIGHT AC 20 GAUGE IV SALINE LOCK PRESENT, PATENT AND INTACT. PT. REMAINS NPO EXCEPT MEDS SINCE MIDNIGHT PENDING HIDA SCAN TODAY. CONSENT IS SIGNED AND PLACED IN PT. CHART. ALL PT. NEEDS MET. BED LOCKED AND IN LOWEST POSITION, SIDE RAILS UP X2, CALL LIGHT WITHIN REACH, WILL ENDORSE TO DAYSHIFT NURSE FOR CONTINUITY OF CARE.
[2018-05-21 06:47] LABS: BASOPHILS # (AUTO) 0.1 /CMM (0.0-0.2); BASOPHILS % (AUTO) 0.8 % (0.0-2.0); HEMATOCRIT 39 % (33-45); HEMOGLOBIN 13.2 g/dL (11.5-14.8); LYMPHOCYTES # (AUTO) 3.2 /CMM (0.8-4.8); LYMPHOCYTES % (AUTO) 40.5 % (20.0-44.0); MEAN CORPUSCULAR HGB CONC 34 g/dl (31.0-36.0); MEAN CORPUSCULAR VOLUME 86 fL (82-100); MONOCYTES # (AUTO) 0.5 /CMM (0.1-1.30); MONOCYTES % (AUTO) 6.5 % (2.0-12.0); NEUTROPHILS # (AUTO) 3.9 /CMM (1.8-8.9); NEUTROPHILS % (AUTO) 49.2 % (43.0-81.0); PLATELET COUNT (AUTO) 237 /CMM (150-450); RED BLOOD CELL COUNT(AUTO) 4.57 MIL/uL (4.0-5.2); WHITE BLOOD COUNT (AUTO) 7.9 K/uL (4.3-11.0)
[2018-05-21 06:50] LABS: CALCIUM, SERUM 8.2 mg/dL (8.5-10.1); CARBON DIOXIDE 23 mmol/L (21-32); CHLORIDE 101 mmol/L (98-107); CREATININE 0.7 mg/dL (0.6-1.3); GLUCOSE 104 mg/dL (74-106); POTASSIUM 3.6 mmol/L (3.5-5.1); SODIUM SERUM 136 mmol/L (136-145); UREA NITROGEN, BLOOD 10 mg/dL (7-18)
[2018-05-21 08:00] VITALS: BP 129/80
--- NOTE | 2018-05-21 08:00 | NUR ---
M/S RN NOTES PATIENT AWAKE IN BED, ALERT AND ORIENTED X 2. PATIENT SPEAKS MACEDONIAN. PATIENT IN NO ACUTE DISTRESS. PATIENT HAS IV SALINE LOCK ON RIGHT AC, PATENT AND INTACT. SAFETY PRECAUTIONS MAINTAINED. CALL LIGHT WITHIN REACH.
[2018-05-21] MEDS: predniSONE 20 MG TABLET PO SCH (09:09)
[2018-05-21] MEDS: PANTOPRAZOLE 40 MG VIAL IV SCH (09:12)
[2018-05-21] MEDS: METHIMAZOLE (5MG) 5 MG TABLET PO SCH (09:59)
[2018-05-21 16:00] VITALS: BP 124/60
[2018-05-21] MEDS ORDERED: SIMETHICONE SUSP 40 MG/0.6 ML BOTTLE PO PRN (16:00)
[2018-05-21] MEDS ORDERED: POLYETHYLENE GLYCOL 3350 17 GM POWD.PACK PO PRN (16:00)
[2018-05-21] MEDS: IV D5/ 0.9% NACL 1,000 ML IV PRN (16:12)
--- NOTE | 2018-05-21 17:00 | NUR ---
M/S RN NOTES PATIENT IN BED RESTING. NO ACUTE DISTRESS NOTED. PATIENT ON ROOM AIR. HIDA SCAN RESULTS SHOWS A REDUCED EJECTION FRACTION OF THE GALLBLADDER. PATIENT IS STILL ON NPO STATUS AT THIS TIME WITH IVF OF D5NS RUNNING AT 75ML/HR. IV ON THE LEFT HAND INTACT AND PATENT #22G. PATIENT DENIES PAIN AT THIS TIME. SAFETY PRECAUTIONS MAINTAINED. CALL LIGHT WITHIN REACH.
--- NOTE | 2018-05-21 19:30 | NUR ---
RECEIVED PATIENT IN BED AWAKE, AO X 3, ABLE TO MAKE NEEDS KNOWN. NO ACUTE DISTRESS NOTED. NO SIGNS OF PAIN NOTED. IV SITE PATENT, INTACT; IVF INFUSING ORDERED. SAFETY REMINDERS GIVEN. ON LOW BED WITH BILATERAL UPPER SIDE RAILS UP. CALL ISAAC WITHIN EASY REACH. WILL CONTINUE TO MONITOR.
[2018-05-21 20:00] VITALS: BP 96/57
[2018-05-21] MEDS: MUPIROCIN OINT 2% 22 GM TUBE SCH (21:15)
[2018-05-21] MEDS: SIMVASTATIN 20 MG TABLET PO SCH (21:15)
--- NOTE | 2018-05-22 06:00 | NUR ---
PATIENT ASLEEP; EASILY AROUSABLE. RESPIRATION EVEN. NO SIGNS OF PAIN NOTED. DUE MEDS GIVEN WITH NO ASE NOTED. NEEDS ATTENDED. KEPT CLEAN AND DRY. CONTACT ISOLATION FOR MRSA NARES MAINTAINED. SAFETY PRECAUTIONS AND COMFORT MEASURES IN PLACE. WILL GIVE REPORT TO DAY SHIFT FOR CONTINUITY OF CARE.
[2018-05-22 07:07] LABS: CALCIUM, SERUM 7.9 mg/dL (8.5-10.1); CARBON DIOXIDE 23 mmol/L (21-32); CHLORIDE 103 mmol/L (98-107); CREATININE 0.7 mg/dL (0.6-1.3); GLUCOSE 137 mg/dL (74-106); POTASSIUM 3.7 mmol/L (3.5-5.1); SODIUM SERUM 137 mmol/L (136-145); UREA NITROGEN, BLOOD 16 mg/dL (7-18)
[2018-05-22] MEDS: IV D5/ 0.9% NACL 1,000 ML IV PRN (07:47)
[2018-05-22 08:00] VITALS: BP 152/75
[2018-05-22] MEDS: METHIMAZOLE (5MG) 5 MG TABLET PO SCH (08:26)
[2018-05-22] MEDS: predniSONE 20 MG TABLET PO SCH (08:26)
[2018-05-22] MEDS: MUPIROCIN OINT 2% 22 GM TUBE SCH ×2 (09:14→21:11)
[2018-05-22] MEDS: PANTOPRAZOLE 40 MG VIAL IV SCH (09:14)
[2018-05-22] MEDS: HYDROCODONE/APAP 5/325MG 1 EACH TABLET PO PRN ×2 (13:41→21:12)
[2018-05-22 16:22] VITALS: BP 144/78
[2018-05-22 20:00] VITALS: BP 123/80
[2018-05-22 20:16] VITALS: BP 123/80
[2018-05-22] MEDS: SIMVASTATIN 20 MG TABLET PO SCH (21:12)
[2018-05-22] MEDS: ZOLPIDEM TARTRATE 5 MG TABLET PO PRN ×2 (22:15)
--- NOTE | 2018-05-23 06:00 | NUR ---
PATIENT ASLEEP; EASILY AROUSABLE. RESPIRATION EVEN. NO SIGNS OF PAIN NOTED. NPO SINCE MIDNIGHT FOR LAP KACY. DUE MEDS GIVEN WITH NO ASE NOTED. NEEDS ATTENDED. KEPT CLEAN AND DRY. SAFETY PRECAUTIONS AND COMFORT MEASURES IN PLACE. WILL GIVE REPORT TO DAY SHIFT FOR CONTINUITY OF CARE.
[2018-05-23] MEDS: IV D5/ 0.9% NACL 1,000 ML IV PRN (06:38)
--- NOTE | 2018-05-23 07:20 | NUR ---
RN OPENING NOTES PT AWAKE AND RESTING IN BED. PT PRIMARILY MACANESE SPEAKER. NO COMPLAINTS OF PAIN, SOB OR DISTRESS AT THIS TIME. PT NPO SINCE MIDNIGHT. PT SCHEDULED LAP KACY TODAY AT 11, ALL CONSENTS SIGNED. SAFETY PRECAUTIONS IN PLACE, BED IN LOWEST LOCKED POSITION, X2 SIDE RAILS UP AND CALL LIGHT WITHIN REACH. WILL CONTINUE TO MONITOR.
[2018-05-23] MEDS: MUPIROCIN OINT 2% 22 GM TUBE SCH ×2 (08:37→21:53)
[2018-05-23] MEDS: PANTOPRAZOLE 40 MG VIAL IV SCH (08:37)
[2018-05-23] MEDS: predniSONE 20 MG TABLET PO SCH (08:38)
[2018-05-23] MEDS: METHIMAZOLE (5MG) 5 MG TABLET PO SCH (08:38)
[2018-05-23 08:50] VITALS: BP 141/84
[2018-05-23] MEDS ORDERED: LIDOCAINE HCL/PF 1% 30 ML SDV ONE (10:54)
[2018-05-23] MEDS ORDERED: MIDAZOLAM HCL 2 MG/2ML VIAL ONE (11:08)
[2018-05-23] MEDS ORDERED: FENTANYL PF 250MCG/5ML AMPUL ONE (11:09)
[2018-05-23] MEDS ORDERED: METOCLOPRAMIDE HCL 10 MG/2 ML VIAL ONE (11:09)
[2018-05-23] MEDS ORDERED: FAMOTIDINE/PF INJ 20 MG/2 ML VIAL IV ONE (11:09)
[2018-05-23] MEDS ORDERED: ROCURONIUM BROMIDE 50 MG/5 ML ONE (11:10)
[2018-05-23] MEDS ORDERED: FENTANYL PF 100MCG/2ML AMPUL ONE (12:53)
[2018-05-23] MEDS ORDERED: ONDANSETRON HCL/PF 4 MG/2 ML VIAL IVP PRN (13:30)
[2018-05-23] MEDS ORDERED: HYDROMORPHONE INJ 0.5 MG/0.5 ML SYRINGE IV PRN (13:30)
[2018-05-23] MEDS ORDERED: HYDROCODONE/APAP 10/325MG 1 EA TABLET PO PRN ×2 (13:30)
--- NOTE | 2018-05-23 13:45 | NUR ---
RN NOTES RETURNED BACK FROM [facility]. WILL FOLLOW ALL POST OP ORDERS GIVEN BY DR GREEN.
[2018-05-23] MEDS: GABAPENTIN 300 MG CAPSULE PO SCH ×2 (14:14→21:52)
[2018-05-23] MEDS: IBUPROFEN 600 MG TABLET PO SCH ×2 (14:14→21:53)
[2018-05-23] MEDS: ACETAMINOPHEN 325 MG TABLET PO SCH ×2 (14:14→21:52)
[2018-05-23 16:01] VITALS: BP 136/88
--- NOTE | 2018-05-23 19:54 | NUR ---
MS RN NOTES RECEIVED PATIENT AWAKE IN BED WITH NO DISTRESS NOTED. CALL LIGHT WITHIN REACH. FAMILY AT BEDSIDE. NO C/O PAIN OR DISCOMFORT. PERIPHERAL LINE INTACT AND PATENT. PATIENT S/P LAP KACY TODAY, NO ACTIVE BLEEDING NOTED. BED IN LOW LOCK SETTING. ROOM FREE OF CLUTTER AND BELONGINGS NEAR BEDSIDE. WILL CONTINUE TO MONITOR.
--- NOTE | 2018-05-23 19:54 | NUR ---
RN CLOSING NOTES PT AWAKE AND RESTING IN BED. PT PRIMARILY KITTITIAN SPEAKER. NO COMPLAINTS OF PAIN, SOB OR DISTRESS AT THIS TIME. FAMILY AT BEDSIDE. LAP KACY SITE DRESSINGS CLEAN. SAFETY PRECAUTIONS IN PLACE, BED IN LOWEST LOCKED POSITION, X2 SIDE RAILS UP AND CALL LIGHT WITHIN REACH. WILL CONTINUE TO MONITOR.
[2018-05-23] MEDS: SIMVASTATIN 20 MG TABLET PO SCH (21:52)
[2018-05-24] MEDS: IV D5/ 0.9% NACL 1,000 ML IV PRN (03:15)
[2018-05-24] MEDS: ACETAMINOPHEN 325 MG TABLET PO SCH ×4 (05:57→13:49)
[2018-05-24] MEDS: IBUPROFEN 600 MG TABLET PO SCH ×3 (05:57→07:07)
[2018-05-24] MEDS: GABAPENTIN 300 MG CAPSULE PO SCH ×4 (05:57→13:49)
--- NOTE | 2018-05-24 07:14 | NUR ---
MS RN NOTES PATIENT AWAKE IN BED WITH NO DISTRESS NOTED. CALL LIGHT WITHIN REACH. NO C/O PAIN OR DISCOMFORT. ALL DUE MEDS GIVEN ORDERED WITH NO ASE NOTED. PERIPHERAL LINE INTACT AND PATENT. BED IN LOW LOCK SETTING. ALL BELONGINGS KEPT NEAR BEDSIDE. WILL ENDORSE TO ONCOMING SHIFT.
--- NOTE | 2018-05-24 07:30 | NUR ---
MS/RN Patient received Patient received from night manager. A/O X3, vital signs stable, denies any pain or discomfort. Lap sites clean and dry, tolerating clear liquid diet. Call light within reach, will continue to monitor and ensure safety.
[2018-05-24 07:51] VITALS: BP 131/81
[2018-05-24 08:00] VITALS: BP 131/81
[2018-05-24] MEDS: METHIMAZOLE (5MG) 5 MG TABLET PO SCH (08:16)
[2018-05-24] MEDS: MUPIROCIN OINT 2% 22 GM TUBE SCH (08:16)
[2018-05-24] MEDS: predniSONE 20 MG TABLET PO SCH (08:16)
[2018-05-24] MEDS: PANTOPRAZOLE 40 MG VIAL IV SCH (08:16)
--- NOTE | 2018-05-24 08:38 | NUR ---
MS/RN S/B Dr Seth Seen by Dr Seth - oxygen and IV fluids to be discontinued. Patient to be encouraged to ambulate in hallways. Diet to be changed to low fat diet.
--- NOTE | 2018-05-24 12:30 | NUR ---
MS/RN Soft diet Tolerating soft diet, no nausea or vomiting.
--- NOTE | 2018-05-24 13:00 | NUR ---
MS/RN S/B Alex Echeverria NP Seen by AIR CARGO GROUND OPERATIONS SUPERVISOR - patient cleared for discharge to home later today.
--- NOTE | 2018-05-24 14:18 | NUR ---
MS/inclusion teacher Patient discharged to home in stable condition, escorted by DIRECTOR OF TEENAGE ACTIVITIES via wheelchair. Daughter and grand daughter with patient. Heplock and name bands removed. Educated patient with grand daughter as hem marker as to the importance of following up with Dr Romeo in 7-10 days for removal of michael. Provided with both office number and address for reference. Instructed to observe incision sites for any signs of infection including fever, increase in pain, swelling and redness around lap sites, stated understanding. Prescription for norco and zofran provided to patient. Made aware of what each medication was for and possible side effects, again stated understanding of education given. All paperwork signed, copies provided of exit care and medical record. All personal belongings accounted for and signed off on belongings list.
== END 2018-05-24 14:00 | disposition home or self-care (01) | DRG 418 ==
LOC: ER 15:40 → TELE 20:02 → MED 05-20 10:49 → MEDSG2 05-21 20:13
PROVIDERS: ADMIT Student in an Organized Health Care Education/Training Program; ATTEND Nurse Practitioner Acute Care
PROC: 0DB78ZX Excision of Stomach, Pylorus, Via Natural or Artificial Opening Endoscopic, Diagnostic (ICD-10-PCS; 2018-05-22)
PROC: 0FT44ZZ Resection of Gallbladder, Percutaneous Endoscopic Approach (ICD-10-PCS; principal; 2018-05-23)
DX: K82.8 Other specified diseases of gallbladder (principal); M87.851 Other osteonecrosis, right femur; E22.2 Syndrome of inappropriate secretion of antidiuretic hormone; M87.852 Other osteonecrosis, left femur; I10 Essential (primary) hypertension; E86.0 Dehydration; E11.9 Type 2 diabetes mellitus without complications; E03.9 Hypothyroidism, unspecified; M16.0 Bilateral primary osteoarthritis of hip; D64.9 Anemia, unspecified; E86.1 Hypovolemia; I25.10 Atherosclerotic heart disease of native coronary artery without angina pectoris; I25.2 Old myocardial infarction; Z86.73 Personal history of transient ischemic attack (TIA), and cerebral infarction without residual deficits; Z95.2 Presence of prosthetic heart valve; K21.0 Gastro-esophageal reflux disease with esophagitis; J45.909 Unspecified asthma, uncomplicated; I48.91 Unspecified atrial fibrillation; K52.9 Noninfective gastroenteritis and colitis, unspecified; K57.30 Diverticulosis of large intestine without perforation or abscess without bleeding; M47.892 Other spondylosis, cervical region; K29.50 Unspecified chronic gastritis without bleeding; K44.9 Diaphragmatic hernia without obstruction or gangrene; M48.02 Spinal stenosis, cervical region; M43.12 Spondylolisthesis, cervical region; Z87.11 Personal history of peptic ulcer disease
CPT/HCPCS: 36415; 70450-TC; 70491-TC; 71045-TC; 74181-TC; 78226; 80048-TC; 80076-TC; 83690-TC; 83735-TC; 84100-TC; 84484-TC; 85025-TC; 85610-TC; 85730-TC; 86850-TC; 87081-TC; 88304-TC; 88305-TC; 88313-TC; 88342; 93307-TC; 93880-TC; A4216; A6402; A9537; C9113; G0378; J0690; J2250; J2270; J2405; J2704; J2710; J2765; J3010; J3490; J7030; J7042; J7050; Q9967

== ENCOUNTER 2018-06-06 19:35 | Inpatient (IN) | payer MEDICARE, OTHER ==
[~2018-06-06] VITALS: Ht 149.9 cm; Wt 54.5 kg
[2018-06-06] MEDS ORDERED: ONDANSETRON HCL/PF 4 MG/2 ML VIAL ONE (20:24)
[2018-06-06] MEDS ORDERED: IV NS 0.9% 1,000 ML BAG IV ONE (20:30)
[2018-06-06] MEDS ORDERED: ONDANSETRON HCL/PF 4 MG/2 ML VIAL IVP ONE (20:30)
[2018-06-06 20:39] LABS: BASOPHILS # (AUTO) 0.1 /CMM (0.0-0.2); BASOPHILS % (AUTO) 1.1 % (0.0-2.0); EOSINOPHILS % (AUTO) 1.8 % (0.0-6.0); HEMATOCRIT 43 % (33-45); HEMOGLOBIN 14.5 g/dL (11.5-14.8); LYMPHOCYTES # (AUTO) 3.3 /CMM (0.8-4.8); LYMPHOCYTES % (AUTO) 30.2 % (20.0-44.0); MEAN CORPUSCULAR HGB CONC 34 g/dl (31.0-36.0); MEAN CORPUSCULAR VOLUME 86 fL (82-100); MONOCYTES # (AUTO) 0.7 /CMM (0.1-1.30); NEUTROPHILS # (AUTO) 6.6 /CMM (1.8-8.9); NEUTROPHILS % (AUTO) 60.9 % (43.0-81.0); PLATELET COUNT (AUTO) 355 /CMM (150-450); WHITE BLOOD COUNT (AUTO) 10.9 K/uL (4.3-11.0)
[2018-06-06 20:50] LABS: CALCIUM, SERUM 8.9 mg/dL (8.5-10.1); CARBON DIOXIDE 27 mmol/L (21-32); CHLORIDE 89 mmol/L (98-107); CREATININE 0.9 mg/dL (0.6-1.3); GLUCOSE 107 mg/dL (74-106); POTASSIUM 3.6 mmol/L (3.5-5.1); SODIUM SERUM 126 mmol/L (136-145); UREA NITROGEN, BLOOD 12 mg/dL (7-18)
[2018-06-06] MEDS ORDERED: PROCHLORPERAZINE EDISYLATE 10 MG/2 ML VIAL ONE (20:55)
[2018-06-06 20:57] LABS: ALANINE AMINOTRANSFERASE 17 U/L (12-78); ALBUMIN 4.1 g/dL (3.4-5.0); ALKALINE PHOSPHATASE 52 U/L (46-116); ASPARTATE AMINOTRANSFERASE 20 U/L (15-37); BILIRUBIN,DIRECT 0.1 mg/dL (0.0-0.2); BILIRUBIN,TOTAL 0.4 mg/dL (0.2-1.0); LIPASE 174 U/L (73-393); TOTAL PROTEIN, SERUM 8.4 g/dL (6.4-8.2)
[2018-06-06] MEDS ORDERED: PROCHLORPERAZINE EDISYLATE 10 MG/2 ML VIAL IM ONE (21:00)
[2018-06-06] MEDS ORDERED: MORPHINE SULFATE INJ 2 MG/ML DISP.SYRIN ONE (22:49)
[2018-06-06] MEDS ORDERED: METOCLOPRAMIDE HCL 10 MG/2 ML VIAL ONE (22:49)
[2018-06-06] MEDS ORDERED: MORPHINE SULFATE INJ 2 MG/ML DISP.SYRIN IV ONE (23:00)
[2018-06-06] MEDS ORDERED: METOCLOPRAMIDE HCL 10 MG/2 ML VIAL IV ONE (23:00)
[2018-06-07 01:25] VITALS: BP 101/57
[2018-06-07 01:35] VITALS: BP 126/74
[2018-06-07] MEDS: hydrALAZINE HCL 25 MG TABLET PO SCH ×4 (02:00→21:00)
[2018-06-07] MEDS ORDERED: ALBUTEROL SULFATE 8 GM HFA.AER.AD IH PRN (02:00)
[2018-06-07] MEDS: IV NS 0.9% 1,000 ML IV PRN (02:22)
[2018-06-07] MEDS ORDERED: ONDANSETRON HCL/PF 4 MG/2 ML VIAL IVP PRN (02:30)
[2018-06-07] MEDS ORDERED: ALBUTEROL FS 2.5 MG/3 ML VIAL.NEB NEB PRN (02:30)
[2018-06-07] MEDS ORDERED: Z GUARD REMEDY 2 OZ OINT TP PRN (02:30)
[2018-06-07] MEDS ORDERED: ZOLPIDEM TARTRATE 5 MG TABLET PO PRN (02:30)
[2018-06-07] MEDS: ACETAMINOPHEN 325 MG TABLET PO PRN ×2 (04:55→23:18)
[2018-06-07 08:00] VITALS: BP 98/50
[2018-06-07] MEDS: PANTOPRAZOLE 40 MG TABLET.DR PO SCH (08:17)
[2018-06-07] MEDS: MEMANTINE HCL 5 MG TABLET PO SCH (08:17)
[2018-06-07] MEDS: METHIMAZOLE (5MG) 5 MG TABLET PO SCH (09:44)
[2018-06-07 16:00] VITALS: BP 117/73
[2018-06-07 16:15] VITALS: BP 116/70
[2018-06-07 20:00] VITALS: BP 126/68
[2018-06-07] MEDS ORDERED: SIMVASTATIN 20 MG TABLET PO SCH (22:00)
[2018-06-08] MEDS: hydrALAZINE HCL 25 MG TABLET PO SCH ×2 (02:39→08:24)
[2018-06-08] MEDS: IV NS 0.9% 1,000 ML IV PRN (02:42)
[2018-06-08 06:20] LABS: ALANINE AMINOTRANSFERASE 16 U/L (12-78); ALBUMIN 3.2 g/dL (3.4-5.0); ALKALINE PHOSPHATASE 45 U/L (46-116); ASPARTATE AMINOTRANSFERASE 16 U/L (15-37); BILIRUBIN,TOTAL 0.4 mg/dL (0.2-1.0); CALCIUM, SERUM 8.2 mg/dL (8.5-10.1); CARBON DIOXIDE 23 mmol/L (21-32); CHLORIDE 102 mmol/L (98-107); CREATININE 0.7 mg/dL (0.6-1.3); GLUCOSE 114 mg/dL (74-106); MAGNESIUM 2.1 mg/dL (1.8-2.4); PHOSPHORUS 2.6 mg/dL (2.5-4.9); POTASSIUM 3.4 mmol/L (3.5-5.1); SODIUM SERUM 136 mmol/L (136-145); TOTAL PROTEIN, SERUM 6.6 g/dL (6.4-8.2); UREA NITROGEN, BLOOD 7 mg/dL (7-18)
[2018-06-08 06:22] LABS: CHOLESTEROL 217 mg/dL (<200); HDL CHOLESTEROL 76 mg/dL (40-60); LDL 119 mg/dL (0-99); TRIGLYCERIDES 66 mg/dL (30-150)
[2018-06-08 06:25] LABS: BASOPHILS # (AUTO) 0.1 /CMM (0.0-0.2); BASOPHILS % (AUTO) 0.9 % (0.0-2.0); EOSINOPHILS % (AUTO) 3.1 % (0.0-6.0); HEMATOCRIT 37 % (33-45); HEMOGLOBIN 12.5 g/dL (11.5-14.8); LYMPHOCYTES # (AUTO) 3.1 /CMM (0.8-4.8); MEAN CORPUSCULAR HGB CONC 34 g/dl (31.0-36.0); MEAN CORPUSCULAR VOLUME 84 fL (82-100); MONOCYTES # (AUTO) 0.6 /CMM (0.1-1.30); MONOCYTES % (AUTO) 6.8 % (2.0-12.0); NEUTROPHILS # (AUTO) 5.3 /CMM (1.8-8.9); NEUTROPHILS % (AUTO) 56.2 % (43.0-81.0); PLATELET COUNT (AUTO) 312 /CMM (150-450); RED BLOOD CELL COUNT(AUTO) 4.34 MIL/uL (4.0-5.2); WHITE BLOOD COUNT (AUTO) 9.5 K/uL (4.3-11.0)
[2018-06-08] MEDS: PANTOPRAZOLE 40 MG TABLET.DR PO SCH (07:40)
[2018-06-08] MEDS: ACETAMINOPHEN 325 MG TABLET PO PRN (07:40)
[2018-06-08 08:00] VITALS: BP 133/81
[2018-06-08 08:15] VITALS: BP 131/82
[2018-06-08] MEDS: MEMANTINE HCL 5 MG TABLET PO SCH (08:21)
[2018-06-08] MEDS: METHIMAZOLE (5MG) 5 MG TABLET PO SCH (08:22)
[2018-06-08 08:24] VITALS: BP 133/81
[2018-06-08] MEDS ORDERED: POTASSIUM CHLORIDE 20 MEQ POWDER PACKET PO SCH (10:30)
== END 2018-06-08 11:07 | disposition home or self-care (01) | DRG 641 ==
LOC: ER 19:37 → MED 23:30
PROVIDERS: ADMIT Family Medicine; ATTEND Family Medicine
DX: E86.0 Dehydration (principal); I50.32 Chronic diastolic (congestive) heart failure; R11.2 Nausea with vomiting, unspecified; E87.1 Hypo-osmolality and hyponatremia; E03.9 Hypothyroidism, unspecified; E11.9 Type 2 diabetes mellitus without complications; D64.9 Anemia, unspecified; E87.6 Hypokalemia; I25.10 Atherosclerotic heart disease of native coronary artery without angina pectoris; J45.909 Unspecified asthma, uncomplicated; K21.9 Gastro-esophageal reflux disease without esophagitis; Z90.49 Acquired absence of other specified parts of digestive tract; Z95.2 Presence of prosthetic heart valve; I11.0 Hypertensive heart disease with heart failure; K57.90 Diverticulosis of intestine, part unspecified, without perforation or abscess without bleeding; I48.91 Unspecified atrial fibrillation; K59.00 Constipation, unspecified
CPT/HCPCS: 36415; 71045-TC; 80048-TC; 80053-TC; 80061-TC; 80076-TC; 83690-TC; 83735-TC; 84100-TC; 84484-TC; 85025-TC; 85730-TC; 87081-TC; G0378; J0780; J2270; J2405; J2765; J7030

== ENCOUNTER 2019-11-17 04:56 | Inpatient (IN) | payer MEDICARE, OTHER ==
[~2019-11-17] VITALS: Ht 121.9 cm; Wt 59.0 kg
[~2019-11-17 04:56] MED LIST changes: -PANT40TA4 PO; +PANT40TA49 PO; +SIMV-46 PO; -SIMV20TA6 PO
--- NOTE | 2019-11-17 05:12 | NUR ---
PT LUPE SPEAKING BIBRA 102 FROM HOME FOR C/O SOB SINCE YESTERDAY. PT SAT 95%, PLACED ON 2L NC SAT 99%. MD AT BEDSIDE FOR EVAL, AWAITING ORDERS.
[2019-11-17] MEDS ORDERED: DOCU100C36 PO (05:32)
[2019-11-17] MEDS ORDERED: LORA10TA7 PO (05:32)
[2019-11-17] MEDS ORDERED: APIX2.5T PO (05:32)
[2019-11-17] MEDS ORDERED: FAMO40TA7 PO (05:32)
[2019-11-17] MEDS ORDERED: ATOR20TA PO (05:32)
[2019-11-17] MEDS ORDERED: GABA-532 PO (05:32)
[2019-11-17] MEDS ORDERED: ICOS1CAP PO (05:32)
[2019-11-17] MEDS ORDERED: POTA10TA21 PO (05:32)
[2019-11-17] MEDS ORDERED: CALC-718 PO (05:32)
[2019-11-17] MEDS ORDERED: CLOP75TA15 PO (05:32)
[2019-11-17] MEDS ORDERED: MICO45CR12 VG (05:32)
[2019-11-17] MEDS ORDERED: MONT10TA22 PO (05:32)
[2019-11-17] MEDS ORDERED: FLUT1DIS3 IH (05:32)
[2019-11-17] MEDS ORDERED: MEMA28CA PO (05:32)
[2019-11-17] MEDS ORDERED: METO200T49 PO (05:32)
--- NOTE | 2019-11-17 05:44 | NUR ---
LINE INITIATED LH 22G, BLOOD DRAWN AND SENT TO LAB.
[2019-11-17 05:46] LABS: BASOPHILS # (AUTO) 0.1 /CMM (0.0-0.2); BASOPHILS % (AUTO) 1.3 % (0.0-2.0); EOSINOPHILS % (AUTO) 4.4 % (0.0-6.0); HEMATOCRIT 32 % (33-45); HEMOGLOBIN 10.4 g/dL (11.5-14.8); LYMPHOCYTES # (AUTO) 2.9 /CMM (0.8-4.8); LYMPHOCYTES % (AUTO) 28.7 % (20.0-44.0); MEAN CORPUSCULAR HGB CONC 33 g/dl (31.0-36.0); MEAN CORPUSCULAR VOLUME 85 fL (82-100); MONOCYTES # (AUTO) 0.8 /CMM (0.1-1.30); MONOCYTES % (AUTO) 7.6 % (2.0-12.0); NEUTROPHILS # (AUTO) 5.8 /CMM (1.8-8.9); PLATELET COUNT (AUTO) 327 /CMM (150-450); RED BLOOD CELL COUNT(AUTO) 3.72 MIL/uL (4.0-5.2)
[2019-11-17 06:07] LABS: CALCIUM, SERUM 8.2 mg/dL (8.5-10.1); CARBON DIOXIDE 22 mmol/L (21-32); CHLORIDE 95 mmol/L (98-107); CREATININE 0.7 mg/dL (0.6-1.3); GLUCOSE 133 mg/dL (74-106); POTASSIUM 4.6 mmol/L (3.5-5.1); SODIUM SERUM 127 mmol/L (136-145); UREA NITROGEN, BLOOD 17 mg/dL (7-18)
--- NOTE | 2019-11-17 06:30 | NUR ---
PT AT BEDSIDE WITH DUTCH FRUIT DRYER. PER MD, PT STATED SHE HAS BEEN HAVING CP X2 YEARS.
--- NOTE | 2019-11-17 06:47 | NUR ---
CALLED LAB FOR COVID SWAB
[2019-11-17] MEDS ORDERED: METOPROLOL TARTRATE INJ 5 MG/5 ML AMPUL IVP PRN (07:00)
--- NOTE | 2019-11-17 07:11 | NUR ---
CALLED LAB AGAIN REGARDING COVID SWAB
--- NOTE | 2019-11-17 07:16 | NUR ---
PT C/O HEADACHE. AWARE,. STATED TO GIVE TYLENOL 500MG PO
[2019-11-17] MEDS ORDERED: ACETAMINOPHEN ES 500 MG TABLET ONE (07:18)
--- NOTE | 2019-11-17 07:21 | NUR ---
covid swab collected and sent to the lab.
[2019-11-17] MEDS ORDERED: ACETAMINOPHEN ES 500 MG TABLET PO ONE (07:30)
--- NOTE | 2019-11-17 07:32 | NUR ---
CALLED [facility] PREPARATION SUPERVISOR FREEZING PAGED.
[2019-11-17] MEDS ORDERED: ACET-2605 PO (07:43)
[2019-11-17] MEDS ORDERED: ERGO500014 PO (07:43)
[2019-11-17] MEDS ORDERED: LIDO30AD10 TP (07:43)
[2019-11-17] MEDS ORDERED: DICL100G16 TP (07:43)
[2019-11-17] MEDS ORDERED: LINA290C PO (07:43)
[2019-11-17] MEDS ORDERED: ALBU18HF2 IH (07:43)
[2019-11-17] MEDS ORDERED: TEMA7.5C12 PO (07:53)
[2019-11-17 08:32] LABS: THYROID STIMULATING HORMONE 1.911 uIU/mL (0.358-3.74)
--- NOTE | 2019-11-17 08:49 | NUR ---
COVID RESULT NEGATIVE
--- NOTE | 2019-11-17 08:52 | NUR ---
steam station supervisor made aware of covid result
--- NOTE | 2019-11-17 08:57 | NUR ---
BED 117-2
--- NOTE | 2019-11-17 09:30 | NUR ---
FAMILY PRESERVATION WORKER NOTES RECEIVED PT BROUGHT IN VIA GURNEY BY ER NURSE AND EMT. NO CARDIAC OR RESPIRATORY DISTRESS NOTED. NO SOB NOTED. SATURATING WELL ON 2L OF O2 VIA NC. PLACED ON PET CREMATORY WORKER SHOWING AFIB. PT IS MACEDONIAN SPEAKING ONLY. UNABLE TO SPEAK OR UNDERSTAND TANZANIAN. BROUGHT IN MACEDONIAN SPEAKING BREW HOUSE SUPERVISOR. PT IS AOX2. ONLY TO SELF AND SITUATION. EPISODES OF FORGETFULNESS. IV ACCESS ON L HAND G22. INTACT AND PATENT AND FLUSHING WELL. NO S/S OF INFECTION AND INFILTRATION NOTED. BODY CHECK DONE. PT SKIN IS INTACT. NO EDEMA NOTED. SAFETY PRECAUTIONS IN PLACE. BED LOCKED AND IN LOW POSITION. SIDE RAILS UP X2. BED ALARM HYDROELECTRIC PRODUCTION TECHNICIAN LIGHT WITHIN REACH. WILL CONT TO MONITOR.
--- NOTE | 2019-11-17 10:07 | NUR ---
mali cooper for admitting orders,spoke with daughter Naila Rosas [phone] family decided no comprresion and no intubation,will let primary md know.
--- NOTE | 2019-11-17 10:12 | NUR ---
witnessed by phone spoke to Jordon daughter, no cpr no intubation for patient.
[2019-11-17] MEDS ORDERED: TEMAZEPAM 7.5 MG CAPSULE PO PRN (11:00)
[2019-11-17] MEDS ORDERED: Z GUARD REMEDY 2 OZ OINT TP PRN (11:00)
[2019-11-17] MEDS ORDERED: FUROSEMIDE 20 MG/2 ML VIAL IV PRN (11:00)
[2019-11-17] MEDS ORDERED: FUROSEMIDE 40 MG/4 ML VIAL IV ONE (11:30)
[2019-11-17] MEDS: ACETAMINOPHEN 325 MG TABLET PO PRN (11:38)
[2019-11-17] MEDS: METOPROLOL SUCCINATE 50 MG TAB.SR.24H PO SCH (11:38)
[2019-11-17] MEDS ORDERED: FUROSEMIDE 20 MG/2 ML VIAL IV ONE (12:00)
[2019-11-17] MEDS ORDERED: HYDROCODONE/APAP 5/325MG TABLET PO PRN (12:30)
[2019-11-17] MEDS: ONDANSETRON HCL/PF 4 MG/2 ML VIAL IVP PRN (12:49)
[2019-11-17] MEDS ORDERED: ALBUTEROL SULFATE INH 18 GM HFA.AER.AD IH SCH (13:00)
--- NOTE | 2019-11-17 14:00 | NUR ---
NORCO TYLENOL 650MG WAS INEFFECTIVE FOR HEADACHE 09/20. PER MARISELA BRAGG TO GIVE NORCO 5/325 Q4HRS PRN FOR PAIN. Addendum: 11/17/19 at 1401 by SUSHMA RDZ RN NORCO NOTED TO BE EFFECTIVE. PT FELL ASLEEP. KEPT COMFORTABLE. PROVIDED QUIET ENVIRONMENT
--- NOTE | 2019-11-17 15:30 | NUR ---
HEADACHE PT COMPLAINING OF HEADACHE AGAIN. PER ERIK NEVAREZ, D/C ZOE AND ORDERED MORPHINE 2MG Q4HRS PRN FOR SEVERE PAIN. NOTED AND CARRIED OUT.
[2019-11-17] MEDS: MORPHINE SULFATE INJ 2 MG/ML DISP.SYRIN IV PRN ×2 (15:39→22:25)
[2019-11-17] MEDS ORDERED: FLUTICASONE/SALMETEROL 1 DISK IH SCH (17:00)
[2019-11-17] MEDS: MEMANTINE HCL 5 MG TABLET PO SCH (17:19)
[2019-11-17] MEDS: MONTELUKAST SODIUM (10MG) 10 MG TABLET PO SCH (17:19)
[2019-11-17] MEDS: APIXABAN 2.5 MG TABLET PO SCH (17:20)
--- NOTE | 2019-11-17 18:50 | NUR ---
RN CLOSING NOTES PRODUCT SUPPORT CONSULTANT NOTES PT IN BED. AWAKE ALERT AND ORIENTED X 2. PERIODS OF FORGETFULNESS. NO CARDIAC OR RESPIRATORY DISTRESS NOTED. NO SOB NOTED. SATURATING WELL ON 2L OF O2 VIA NC. ON RETIREMENT SPECIALIST SHOWING AFIB. PT IS UPPER SORBIAN SPEAKING ONLY. UNABLE TO SPEAK OR UNDERSTAND MOZAMBICAN. IV ACCESS ON L HAND G22. INTACT AND PATENT AND FLUSHING WELL. NO S/S OF INFECTION AND INFILTRATION NOTED. SAFETY PRECAUTIONS IN PLACE. BED LOCKED AND IN LOW POSITION. SIDE RAILS UP X2. BED ALARM LEGAL SUPPORT ANALYST LIGHT WITHIN REACH. WILL CONT TO MONITOR.
--- NOTE | 2019-11-17 19:30 | NUR ---
TELE/RN OPENING NOTES RECEIVED PATIENT IN BED RESTING. PATIENT IS ALERT AND ORIENTED X 2, SLOVAK SPEAKING. TELE READING A FIB 100'S. NO SIGNS OF SOB OR RESPIRATORY DISTRESS NOTED. BREATHING IS EVEN AND UNLABORED. PATIENT HAS IV ACCESS ON LEFT HAND #22G SL, INTACT. SAFETY MEASURES ARE IN PLACE, BED IS LOCKED AND PLACED IN THE LOW POSITION, SIDE RAILS UP X 3. CALL LIGHT IS WITHIN REACH. WILL CONTINUE TO MONITOR DURING SHIFT.
[2019-11-17] MEDS: ALBUTEROL FS 2.5 MG/3 ML VIAL.NEB NEB SCH (19:59)
[2019-11-17] MEDS: ATORVASTATIN 10 MG TABLET PO SCH (21:58)
[2019-11-17] MEDS: FAMOTIDINE (20 MG) 20 MG TABLET PO SCH (21:58)
--- NOTE | 2019-11-17 22:30 | NUR ---
TELE/RN NOTES PATIENT IN DISCOMFORT AND RESTLESS, ABLE TO STATE PAIN AT THIS TIME. MORPHINE 2 MG IV WAS GIVEN. V/S ARE STABLE. WILL CONTINUE TO MONITOR.
[2019-11-18] MEDS: ALBUTEROL FS 2.5 MG/3 ML VIAL.NEB NEB SCH ×7 (00:12→23:52)
[2019-11-18 06:28] LABS: BASOPHILS # (AUTO) 0.1 /CMM (0.0-0.2); BASOPHILS % (AUTO) 1.4 % (0.0-2.0); EOSINOPHILS % (AUTO) 6.6 % (0.0-6.0); HEMATOCRIT 32 % (33-45); HEMOGLOBIN 10.4 g/dL (11.5-14.8); LYMPHOCYTES # (AUTO) 2.5 /CMM (0.8-4.8); LYMPHOCYTES % (AUTO) 29.8 % (20.0-44.0); MEAN CORPUSCULAR HGB CONC 32 g/dl (31.0-36.0); MEAN CORPUSCULAR VOLUME 87 fL (82-100); MONOCYTES # (AUTO) 0.7 /CMM (0.1-1.30); NEUTROPHILS # (AUTO) 4.6 /CMM (1.8-8.9); NEUTROPHILS % (AUTO) 54.2 % (43.0-81.0); PLATELET COUNT (AUTO) 331 /CMM (150-450); RED BLOOD CELL COUNT(AUTO) 3.69 MIL/uL (4.0-5.2); WHITE BLOOD COUNT (AUTO) 8.5 K/uL (4.3-11.0)
--- NOTE | 2019-11-18 06:45 | NUR ---
TELE/RN CLOSING NOTES PATIENT IN BED RESTING. PATIENT IS ALERT AND ORIENTED X 2, GUATEMALAN SPEAKING. TELE READING A FIB 100'S. NO SIGNS OF SOB OR RESPIRATORY DISTRESS NOTED. BREATHING IS EVEN AND UNLABORED. PATIENT HAS IV ACCESS ON LEFT HAND #22G SL, INTACT. ALL PATIENTS NEEDS HAVE BEEN MET DURING SHIFT. SAFETY MEASURES ARE IN PLACE, BED IS LOCKED AND PLACED IN THE LOW POSITION, SIDE RAILS UP X 3. CALL LIGHT IS WITHIN REACH. WILL ENDORSE CARE TO DAY SHIFT.
[2019-11-18 07:42] LABS: ALANINE AMINOTRANSFERASE 12 U/L (12-78); ALKALINE PHOSPHATASE 48 U/L (46-116); ASPARTATE AMINOTRANSFERASE 17 U/L (15-37); BILIRUBIN,TOTAL 0.3 mg/dL (0.2-1.0); CALCIUM, SERUM 8.1 mg/dL (8.5-10.1); CARBON DIOXIDE 22 mmol/L (21-32); CHLORIDE 100 mmol/L (98-107); CREATININE 0.6 mg/dL (0.6-1.3); GLUCOSE 101 mg/dL (74-106); MAGNESIUM 2.7 mg/dL (1.8-2.4); POTASSIUM 3.7 mmol/L (3.5-5.1); SODIUM SERUM 133 mmol/L (136-145); TOTAL PROTEIN, SERUM 6.5 g/dL (6.4-8.2); UREA NITROGEN, BLOOD 13 mg/dL (7-18)
[2019-11-18] MEDS: MORPHINE SULFATE INJ 2 MG/ML DISP.SYRIN IV PRN ×2 (07:52→22:06)
--- NOTE | 2019-11-18 07:56 | NUR ---
TELE/RN OPENING NOTES RECEIVED PATIENT AWAKE ON BED. ALERT AND ORIENTED X 2-3. PATIENT IS ON OXYGEN 2L VIA NASAL CANNULA. PATIENT IN NO RESPIRATORY DISTRESS NOTED. PATIENT COMPLAINED OF HEADACHE AND BODY PAIN RATED 10/10, MORPHINE 2 MG IV WAS GIVEN. PATIENT IN ON TELE MONITOR READING A-FIB. WILL CONTINUE TO MONITOR.
[2019-11-18 07:59] LABS: IRON, SERUM 19 ug/dl (50-175); TOTAL IRON BINDING CAPACITY 357 ug/dl (250-450)
[2019-11-18 08:04] LABS: CHOLESTEROL 175 mg/dL (<200); HDL CHOLESTEROL 52 mg/dL (40-60); LDL 96 mg/dL (0-99); THYROID STIMULATING HORMONE 1.054 uIU/mL (0.358-3.74); TRIGLYCERIDES 80 mg/dL (30-150)
[2019-11-18] MEDS: LIDOCAINE 5% (PATCH) 1 EA PATCH TP SCH (08:49)
[2019-11-18] MEDS: CLOPIDOGREL BISULFATE 75 MG TABLET PO SCH (08:49)
[2019-11-18] MEDS: FLUTICASONE/VILANTEROL 1 EACH BLST.W.DEV IH SCH (08:49)
[2019-11-18] MEDS: MEMANTINE HCL 5 MG TABLET PO SCH ×2 (08:49→16:37)
[2019-11-18] MEDS: GABAPENTIN 100 MG CAPSULE PO SCH (08:49)
[2019-11-18] MEDS: APIXABAN 2.5 MG TABLET PO SCH ×2 (08:51→16:39)
[2019-11-18] MEDS: FUROSEMIDE 40 MG/4 ML VIAL IV SCH ×2 (10:00→12:55)
[2019-11-18] MEDS: ACETAMINOPHEN 325 MG TABLET PO PRN ×2 (10:51→17:40)
--- NOTE | 2019-11-18 10:51 | NUR ---
TELE/RN NOTES PATIENT COMPLAINED OF HEADACHE TYLENOL 325 MG 2 TABS WAS GIVEN. WILL CONTINUE TO MONITOR.
[2019-11-18] MEDS: METOPROLOL SUCCINATE 50 MG TAB.SR.24H PO SCH (11:00)
--- NOTE | 2019-11-18 11:46 | NUR ---
TELE/RN NOTES METOPROLOL 50 MG 1 TAB IS WITH HELD BP 108/48 P 75. WILL CONTINUE TO MONITOR.
[2019-11-18] MEDS: SOD FERRIC GLUC 125 MG in IV NS 0.9% 100 ML IV SCH (13:18)
[2019-11-18] MEDS: MONTELUKAST SODIUM (10MG) 10 MG TABLET PO SCH (17:40)
--- NOTE | 2019-11-18 18:54 | NUR ---
PATIENT IS ON BED. ALERT AND ORIENTED X 2-3. PATIENT DENIES PAIN AT THIS TIME. PATIENT IS ON OXYGEN 2L VIA NASAL CANNULA. PATIENT IN NO APPARENT RESPIRATORY DISTRESS NOTED. PATIENT IN TELE MONITOR IN PLACED READING A FIB UNCONTROLLED HR 115 BPM. IV ACCESS AT LEFT HAND # 22 SALINE LOCKED PATENT AND INTACT. SEEN AND EXAMINED BY MD WITH ORDERS MADE AND CARRIED OUT. ALL DUE MEDICATIONS WAS GIVEN. SAFETY PRECAUTIONS WAS IN PLACED. BED IN LOWEST POSITION AND LOCKED, SIDERAILS UP X2. CALL LIGHT WITHIN REACH. WILL ENDORSED TO PHOTOVOLTAIC FABRICATION TECHNICIAN FOR VANESSA.
[2019-11-18 20:00] VITALS: BP 123/80
--- NOTE | 2019-11-18 20:00 | NUR ---
RN OPENING NOTES RECEIVED PATIENT IN BED A/A/O X3. PT IS ON 2L VIA NC NO SOB NOTED. PT ON TELE MONITOR SHOWING AFIB HR IN 100s. SAFETY MEASURE IN PLACE CALL LIGHT IN REACH, BED AT LOWEST POSITION, LOCKED, SIDE RAILS UP X2.
[2019-11-18] MEDS: ATORVASTATIN 10 MG TABLET PO SCH (22:05)
[2019-11-18] MEDS: FAMOTIDINE (20 MG) 20 MG TABLET PO SCH (22:05)
[2019-11-19] VITALS: BP 113/65
[2019-11-19] MEDS: ALBUTEROL FS 2.5 MG/3 ML VIAL.NEB NEB SCH ×6 (03:48→23:57)
[2019-11-19 04:00] VITALS: BP 118/67
[2019-11-19 06:29] LABS: BASOPHILS # (AUTO) 0.1 /CMM (0.0-0.2); BASOPHILS % (AUTO) 0.9 % (0.0-2.0); EOSINOPHILS % (AUTO) 6.8 % (0.0-6.0); HEMATOCRIT 35 % (33-45); HEMOGLOBIN 11.2 g/dL (11.5-14.8); LYMPHOCYTES # (AUTO) 2.6 /CMM (0.8-4.8); LYMPHOCYTES % (AUTO) 27.7 % (20.0-44.0); MEAN CORPUSCULAR HGB CONC 32 g/dl (31.0-36.0); MEAN CORPUSCULAR VOLUME 88 fL (82-100); MONOCYTES # (AUTO) 0.9 /CMM (0.1-1.30); MONOCYTES % (AUTO) 9.1 % (2.0-12.0); NEUTROPHILS # (AUTO) 5.2 /CMM (1.8-8.9); NEUTROPHILS % (AUTO) 55.5 % (43.0-81.0); PLATELET COUNT (AUTO) 360 /CMM (150-450); RED BLOOD CELL COUNT(AUTO) 3.96 MIL/uL (4.0-5.2); WHITE BLOOD COUNT (AUTO) 9.4 K/uL (4.3-11.0)
[2019-11-19 07:03] LABS: ALBUMIN 2.9 g/dL (3.4-5.0); BILIRUBIN,TOTAL 0.2 mg/dL (0.2-1.0); CALCIUM, SERUM 8.3 mg/dL (8.5-10.1); CREATININE 0.8 mg/dL (0.6-1.3); MAGNESIUM 2.5 mg/dL (1.8-2.4); PHOSPHORUS 3.6 mg/dL (2.5-4.9); POTASSIUM 3.5 mmol/L (3.5-5.1); TOTAL PROTEIN, SERUM 6.5 g/dL (6.4-8.2)
--- NOTE | 2019-11-19 07:20 | NUR ---
RN OPENING NOTES RECEIVED PT IN BED AWAKE, A/O X3. ON 2L VIA NC SATURATING @ 97%. NO SOB NOTED OR ANY RESPIRAOTY DISTRESS NOTED. ON TELE MONITOR SHOWS AFIB. L HAND #22 INTACT, PATENT AND FLUSHED. SAFETY MEASURE OBSERVED. CALL LIGHT WITHIN REACH. BED LOCKED AND AT LOWEST POSITION. SIDE RAILS UP X2. WILL CONTINUE TO MONITOR
--- NOTE | 2019-11-19 07:26 | NUR ---
PT REMAINED STABLE DURING MY SHIFT, REPORT GIVEN TO INCOMING SHIFT FOR VANESSA.
[2019-11-19 08:00] VITALS: BP 140/78
[2019-11-19] MEDS: FLUTICASONE/VILANTEROL 1 EACH BLST.W.DEV IH SCH (09:12)
[2019-11-19] MEDS: GABAPENTIN 100 MG CAPSULE PO SCH (09:14)
[2019-11-19] MEDS: LIDOCAINE 5% (PATCH) 1 EA PATCH TP SCH (09:14)
[2019-11-19] MEDS: MEMANTINE HCL 5 MG TABLET PO SCH ×2 (09:14→17:00)
[2019-11-19] MEDS: POTASSIUM CHLORIDE 20 MEQ TAB.PRT.SR PO SCH ×3 (09:14→11:15)
[2019-11-19] MEDS: CLOPIDOGREL BISULFATE 75 MG TABLET PO SCH (09:14)
[2019-11-19] MEDS: APIXABAN 2.5 MG TABLET PO SCH ×2 (09:20→17:00)
[2019-11-19] MEDS: MORPHINE SULFATE INJ 2 MG/ML DISP.SYRIN IV PRN ×3 (09:26→21:59)
[2019-11-19] MEDS: FUROSEMIDE 40 MG/4 ML VIAL IV SCH ×3 (09:47→17:00)
[2019-11-19] MEDS: METOPROLOL SUCCINATE 50 MG TAB.SR.24H PO SCH (11:25)
[2019-11-19] MEDS: DIGOXIN INJ 0.5 MG/2 ML AMPUL IV SCH ×2 (11:25→18:09)
[2019-11-19 12:00] VITALS: BP 130/82
[2019-11-19] MEDS: ACETAMINOPHEN 325 MG TABLET PO PRN ×2 (15:05→21:50)
[2019-11-19] MEDS: SOD FERRIC GLUC 125 MG in IV NS 0.9% 100 ML IV SCH (15:11)
[2019-11-19 16:00] VITALS: BP 133/76
[2019-11-19] MEDS: MONTELUKAST SODIUM (10MG) 10 MG TABLET PO SCH (18:09)
--- NOTE | 2019-11-19 19:12 | NUR ---
RN CLOSING NOTES PT RESTING IN BED. A/O X3. ON 2L VIA NC SATURATING @ 99%. NO SOB NOTED OR ANY RESPIRATORY DISTRESS NOTED. ON TELE MONITOR SHOWS AFIB @80S. R HAND #22 INTACT, PATENT AND FLUSHED. NO PAIN REPORTED AT THIS TIME. NO SIGNIFICANT CHANGES. SAFETY MEASURE OBSERVED. CALL LIGHT WITHIN REACH. BED LOCKED AND AT LOWEST POSITION. SIDE RAILS UP X2. WILL ENDORSE TO WASTE HANDLING TECHNICIAN FOR VANESSA
[2019-11-19 20:00] VITALS: BP 118/93
[2019-11-19] MEDS: ATORVASTATIN 10 MG TABLET PO SCH (21:52)
[2019-11-19] MEDS: FAMOTIDINE (20 MG) 20 MG TABLET PO SCH (21:54)
[2019-11-19] MEDS: ONDANSETRON HCL/PF 4 MG/2 ML VIAL IVP PRN (23:05)
[2019-11-20] VITALS: BP 136/78
[2019-11-20] MEDS: DIGOXIN INJ 0.5 MG/2 ML AMPUL IV SCH (00:51)
--- NOTE | 2019-11-20 01:55 | NUR ---
0155 DR JHA WAS MADE AWARE OF PATIENT UNCONTROLLED A-FIB DESPITE BEING GIVEN 3 DOSES OF DIGOXIN LAST DOSE GIVEN AT 0050, WITH ORDER TO GIVE CARDIZEM 10 MG IVP PRN Q 6HRS HR > 110. ORDER NOTED AND CARRIED OUT. PATIENT AWAKE IN BED. NO SIGNS DISTRESS NOTED BUT WITH C/O PALPITATION. ABLE TO USE COMMODE WITH ASSIST. DENIES CHEST PAIN WHEN ASKED.
[2019-11-20] MEDS ORDERED: DILTIAZEM HCL 50 MG IV IV STA (02:02)
[2019-11-20] MEDS ORDERED: DILTIAZEM HCL 50 MG IV IV PRN ×2 (02:30)
[2019-11-20] MEDS ORDERED: DILTIAZEM HCL 25 MG IV ONE (02:36)
[2019-11-20] MEDS ORDERED: DILTIAZEM HCL 25 MG IV IV PRN (03:00)
[2019-11-20] MEDS: ALBUTEROL FS 2.5 MG/3 ML VIAL.NEB NEB SCH ×6 (03:21→23:30)
[2019-11-20] MEDS: MORPHINE SULFATE INJ 2 MG/ML DISP.SYRIN IV PRN (03:53)
[2019-11-20 04:00] VITALS: BP 107/74
--- NOTE | 2019-11-20 04:56 | NUR ---
RN notes Received patient in bed, awake, alert and oriented complaining of severe head pain. On 2 lpm O2 via nasal cannula tolerating well. Pakistani speaking with very little taiwanese knowledge. Morphine administered with some relief. Complaint of nausea, Zofran 4mg via IVP administered with help. Patient is very anxious and restless and did not sleep most of the night. Uses bedside commode with assistance. Heart rate was high at 124 to 142bpm (afib). Called MD and spoke with Dr. Hughes, with orders for Cardizem q6hprn for heart rate >110. Kept clean and dry. Will endorse to next shift for continuity of care.
[2019-11-20 07:22] LABS: BASOPHILS # (AUTO) 0.1 /CMM (0.0-0.2); BASOPHILS % (AUTO) 0.9 % (0.0-2.0); EOSINOPHILS % (AUTO) 5.2 % (0.0-6.0); HEMATOCRIT 34 % (33-45); HEMOGLOBIN 10.6 g/dL (11.5-14.8); LYMPHOCYTES # (AUTO) 1.9 /CMM (0.8-4.8); LYMPHOCYTES % (AUTO) 22.6 % (20.0-44.0); MEAN CORPUSCULAR HGB CONC 32 g/dl (31.0-36.0); MEAN CORPUSCULAR VOLUME 88 fL (82-100); MONOCYTES # (AUTO) 0.6 /CMM (0.1-1.30); MONOCYTES % (AUTO) 7.6 % (2.0-12.0); NEUTROPHILS # (AUTO) 5.3 /CMM (1.8-8.9); NEUTROPHILS % (AUTO) 63.7 % (43.0-81.0); PLATELET COUNT (AUTO) 367 /CMM (150-450); RED BLOOD CELL COUNT(AUTO) 3.81 MIL/uL (4.0-5.2); WHITE BLOOD COUNT (AUTO) 8.4 K/uL (4.3-11.0)
[2019-11-20 08:00] VITALS: BP 126/77
[2019-11-20 08:10] LABS: ALBUMIN 3.1 g/dL (3.4-5.0); BILIRUBIN,TOTAL 0.3 mg/dL (0.2-1.0); CALCIUM, SERUM 8.6 mg/dL (8.5-10.1); CREATININE 0.6 mg/dL (0.6-1.3); MAGNESIUM 2.3 mg/dL (1.8-2.4); PHOSPHORUS 2.3 mg/dL (2.5-4.9); POTASSIUM 5.1 mmol/L (3.5-5.1); TOTAL PROTEIN, SERUM 6.7 g/dL (6.4-8.2)
[2019-11-20] MEDS: FLUTICASONE/VILANTEROL 1 EACH BLST.W.DEV IH SCH (08:39)
[2019-11-20] MEDS: LIDOCAINE 5% (PATCH) 1 EA PATCH TP SCH (08:40)
[2019-11-20] MEDS: GABAPENTIN 100 MG CAPSULE PO SCH (08:40)
[2019-11-20] MEDS: MEMANTINE HCL 5 MG TABLET PO SCH ×2 (08:40→17:10)
[2019-11-20] MEDS: CLOPIDOGREL BISULFATE 75 MG TABLET PO SCH (08:40)
[2019-11-20] MEDS: APIXABAN 2.5 MG TABLET PO SCH ×2 (08:43→17:21)
[2019-11-20] MEDS: ACETAMINOPHEN 325 MG TABLET PO PRN ×2 (10:18→21:19)
[2019-11-20 12:00] VITALS: BP 106/65
[2019-11-20] MEDS: METOPROLOL SUCCINATE 50 MG TAB.SR.24H PO SCH (12:07)
[2019-11-20] MEDS ORDERED: DIGOXIN 0.25 MG TABLET PO SCH (13:00)
[2019-11-20] MEDS ORDERED: DIGO250T PO (14:29)
[2019-11-20] MEDS ORDERED: APIX2.5T PO (14:29)
--- NOTE | 2019-11-20 15:30 | NUR ---
RN NOTES CALLED DAUGHTER TO INFORM ABOUT DISCHARGE. ATTEMPTED 3X NO ANSWER, VOICE MESSAGE LEFT. WILL TRY CALLING AGAIN LATER
[2019-11-20 16:00] VITALS: BP 106/68
[2019-11-20] MEDS ORDERED: K PHOS NEUTRAL 250 MG TABLET PO ONE (16:00)
--- NOTE | 2019-11-20 17:00 | NUR ---
RN NOTES PT DAUGHTER CALLED BACK. SAID SHE IS AVAILABLE TO STUDENT SUPPORT ADVISOR THE PT TOMORROW AT 9AM
[2019-11-20] MEDS: MONTELUKAST SODIUM (10MG) 10 MG TABLET PO SCH (17:10)
[2019-11-20] MEDS: SOD FERRIC GLUC 125 MG in IV NS 0.9% 100 ML IV SCH (17:21)
--- NOTE | 2019-11-20 19:10 | NUR ---
RN CLOSING NOTES PT RESTING IN BED, A/O X3. ON 2L VIA NC SATURATING @ 97%. NO SOB NOTED OR ANY RESPIRATORY DISTRESS NOTED. ON TELE MONITOR SHOWS AFIB. FOR DC TOMORROW, DAUGHTER WILL PICK HER UP AT 9AM. SAFETY MEASURE OBSERVED. CALL LIGHT WITHIN REACH. BED LOCKED AND AT LOWEST POSITION. SIDE RAILS UP X2. WILL ENDORSE TO PHYSICIAN SPECIALIST FOR [facility]
--- NOTE | 2019-11-20 19:20 | NUR ---
RN NOTE PATIENT IN BED AWAKE AND ALERT IN SEMI OWENS'S POSITION. ON 2 L OF O2 VIA NC AND TOLERATING WELL. RESPIRATIONS EVEN AND UNLABORED. DENIES PAIN OR DISCOMFORT. DENIES NEED TO USE BED SIDE COMMODE AT THIS TIME. RT CARA AT BEDSIDE. CALL LIGHT WITHIN REACH, SAFETY MEASURES MAINTAINED. BED ALARM ON, BED LOCKED AND IN LOWEST POSITION. WILL MONITOR PATIENT.
[2019-11-20 20:00] VITALS: BP 122/66
[2019-11-20] MEDS: FAMOTIDINE (20 MG) 20 MG TABLET PO SCH (21:12)
[2019-11-20] MEDS: ATORVASTATIN 10 MG TABLET PO SCH (21:12)
--- NOTE | 2019-11-20 23:30 | NUR ---
RN NOTE NOTIFIED BY RT HUNTER AT BEDSIDE THAT PATIENT IS REFUSING SCHEDULED BREATHING TREATMENT. EXPLAINED RISKS AND ADVANTAGES BUT PT IS STILL REFUSING STATING THAT SHE WANTS TO SLEEP. RESPIRATIONS EVEN AND UNLABORED. WILL CONTINUE TO MONITOR.
[2019-11-21] VITALS: BP 116/65
--- NOTE | 2019-11-21 01:37 | NUR ---
RN NOTE PT GOT UP FROM BED TRIGGERING BED ALARM. ASSISTED PT TO BED SIDE COMMODE AND BACK INTO BED. REMINDED PT ABOUT USE OF CALL LIGHT. PT VERBALIZED UNDERSTANDING. DENIES PAIN OR DISCOMFORT. BED ALARM ON, WILL CONTINUE TO MONITOR.
[2019-11-21] MEDS: ACETAMINOPHEN 325 MG TABLET PO PRN ×2 (03:21→09:30)
[2019-11-21] MEDS: ALBUTEROL FS 2.5 MG/3 ML VIAL.NEB NEB SCH ×2 (03:30→07:35)
[2019-11-21 04:00] VITALS: BP 131/80
--- NOTE | 2019-11-21 05:00 | NUR ---
RN NOTE PT ASSISTED TO BED SIDE COMMODE ACCOMPANIED BY RN AND BACK INTO BED. OFFERED PT BATH BUT PT REFUSED. LINEN CHANGE AND GOWN CHANGE COMPLETED. ORAL CARE AND SKIN CARE DONE. SAFETY MEASURES IMPLEMENTED. WILL CONTINUE TO MONITOR PATIENT.
--- NOTE | 2019-11-21 06:58 | NUR ---
RN NOTE NO ACUTE CHANGES OBSERVED OVERNIGHT. PATIENT AWAKE AND ALERT IN BED. RESPIRATIONS EVEN AND UNLABORED. ON 2L OF O2 VIA NC. DENIES PAIN OR DISCOMFORT. ASSISTED TO BEDSIDE COMMODE PRN. PENDING DISCHARGE TODAY. CALL LIGHT WITHIN REACH, SAFETY MEASURES IN PLACE, WILL ENDORSE TO MORNING RN FOR CONTINUATION OF CARE.
--- NOTE | 2019-11-21 08:36 | NUR ---
PT REFUSED RESP TX ATT. NO S/S OF SOB NOTED. PT WANTED TO CONT SLEEPING. WILL CONT TO MONITOR Addendum: 11/21/19 at 0837 by KATINA ARANA RT Amended: Links added.
[2019-11-21] MEDS: MEMANTINE HCL 5 MG TABLET PO SCH (09:30)
[2019-11-21] MEDS: CLOPIDOGREL BISULFATE 75 MG TABLET PO SCH (09:30)
[2019-11-21] MEDS: GABAPENTIN 100 MG CAPSULE PO SCH (09:31)
[2019-11-21] MEDS: LIDOCAINE 5% (PATCH) 1 EA PATCH TP SCH (09:34)
[2019-11-21] MEDS: APIXABAN 2.5 MG TABLET PO SCH (09:34)
--- NOTE | 2019-11-21 11:02 | NUR ---
PATIENT DISCHARGED. SHE WAS PICKED UP BY HER DAUGHTER. DISCHARGE AND FOLLOW UP INSTRUCTIONS AND TEACHING PROVIDED. PATIENT TAKEN BY THE WHEEL CHAIR TO THE ENTRANCE BY ALMA ROSA.
[2019-11-23] MEDS ORDERED: ERGOCALCIFEROL (VITAMIN D 2) 50,000 UNIT CAPSULE PO SCH (11:00)
== END 2019-11-21 11:10 | disposition home or self-care (01) | DRG 308 ==
LOC: ER 04:58 → TELE1 09:12 → MEDSG1 11-20 10:32
PROVIDERS: ADMIT Nurse Practitioner Acute Care; ATTEND Nurse Practitioner Acute Care
DX: I48.91 Unspecified atrial fibrillation (principal); I50.33 Acute on chronic diastolic (congestive) heart failure; E87.1 Hypo-osmolality and hyponatremia; D68.69 Other thrombophilia; I11.0 Hypertensive heart disease with heart failure; I25.10 Atherosclerotic heart disease of native coronary artery without angina pectoris; D64.9 Anemia, unspecified; F03.90 Unspecified dementia, unspecified severity, without behavioral disturbance, psychotic disturbance, mood disturbance, and anxiety; Z95.2 Presence of prosthetic heart valve; K21.9 Gastro-esophageal reflux disease without esophagitis; Z95.5 Presence of coronary angioplasty implant and graft; J45.909 Unspecified asthma, uncomplicated; F32.9 Major depressive disorder, single episode, unspecified; M19.90 Unspecified osteoarthritis, unspecified site; E03.9 Hypothyroidism, unspecified
CPT/HCPCS: 36415; 71045-TC; 76536-TC; 80048-TC; 80053-TC; 80061-TC; 83540-TC; 83735-TC; 83880; 84100-TC; 84439-TC; 84443-TC; 84484-TC; 85025-TC; 87081-TC; 93307-TC; 94799-TC; C9803-CS; G0378; J1160; J1940; J2270; J2405; J2916; J3490; J7030; J7050